=== PATIENT | female | born 1935 | race Caucasian/White ===

== ENCOUNTER → 2016-12-03 | Outpatient (CLI) | payer MEDICARE ==
[~2016-12-03] MED LIST: ACET-2267 PO; AMIO200T2 PO; Aspirin PO; CEFD300C3 PO; CEPH250C PO; CEPH500C PO; CIPR500T78 PO; DIGO125T PO; LEVO25TA2 PO; LORA10TA7 PO; METO-333 PO; METO25TA2 PO; METO25TA6 PO; METO50TA2 PO; NITR-65 PO; ONDA4TAB8 PO; PANT40TA2 PO; Pantoprazole Sodium PO; RIVA20TA PO; TIMO5DRO28 OU; TIMOLOL OU
--- OUTSIDE RECORDS SUMMARY | 2016-12-03 15:03 | XMS REPORT | Continuity of Care Document ---
Author Author [facility] Organization [facility] Address Unknown Phone Unavailable Care Team Providers Care Manager Psychology Name Role Phone NO, LOCAL PHYSICIAN PCP Unavailable Insurance Providers Payer Name Policy Number Subscriber Name Relationship [employer] Medicare [id number] Amber Jeffrey 18 Self / Same As Patient Blue Cross [facility] Supp [id number] Amber Jeffrey 18 Self / Same As Patient Advance Directives Directive Response Recorded Date/Time Advance Directives No 12/12/14 1:30pm Organ Donor Yes 12/12/14 1:30pm Resuscitation Status Full Code 12/12/14 1:30pm Problems No known problems or medical conditions. Medications Medication Dose Route Sig Days/Qty Instructions Order Date Discontinued Date Status Ciprofloxacin HCl 500 Mg PO TWICE A DAY 14 Qty 12/12/14 Active Social History Social History Problem Response Recorded Date/Time Alcohol Use Denies Use 12/12/2014 1:30pm Recreational Drug Use No 12/12/2014 1:30pm Recent Foreign Travel No 12/12/2014 1:30pm Smoking Status Never a Smoker 12/12/2014 1:30pm Query Response Start Date Stop Date Smoking Status Never a Smoker Hospital Discharge Instructions No hospital discharge instructions. Plan of Care No plan of care. Functional Status No functional status results. Allergies, Adverse Reactions, Alerts Allergen Type Severity Reaction Status Last Updated No Known Drug Allergies Active 12/12/14 Immunizations No immunization records. Vital Signs Acute Vital Signs Vital Response Date/Time Temperature (Fahrenheit) 99.2 degrees F (97.6 - 99.5) Temperature (Calculated Celsius) 37.08682 degrees C (36.4 - 37.5) Pulse Rate (adult) 78 bpm (60 - 90) Respiratory Rate 20 bpm (12 - 24) O2 Sat by Pulse Oximetry 93 % (88 - 100) Blood Pressure 143/70 mm Hg Pain Pain Intensity 6 Height (Feet) 5 feet Height (Inches) 0 inches Height (Calculated Centimeters) 152.304413 cm Weight (Pounds) 111 pounds Weight (Calculated Kilograms) 50.756232 kilograms Calculated BMI 21.68 Results Laboratory Results Test Name Result Units Flags Reference Collection Date/Time Result Date/ Time Comments White Blood Count 7.6 10^3/uL 4.3-11.0 12/12/2014 1:34pm 12/12/2014 2: 00pm Red Blood Count 4.28 10^6/uL L 4.35-5.85 12/12/2014 1:34pm 12/12/2014 2: 00pm Hemoglobin 12.6 G/DL 11.5-16.0 12/12/2014 1:34pm 12/12/2014 2:00pm Hematocrit 37 % 35-52 12/12/2014 1:34pm 12/12/2014 2:00pm Mean Corpuscular Volume 87 FL 80-99 12/12/2014 1:pm 12/12/2014 2: 00pm Mean Corpuscular Hemoglobin 29 PG 25-34 12/12/2014 1:34pm 12/12/2014 2: 00pm Mean Corpuscular Hemoglobin Concent 34 G/DL 32-36 12/12/2014 1:pm 11/2014 2:00pm Red Cell Distribution Width 12.5 % 10.0-14.5 12/12/2014 1:pm 2014 2:00pm Platelet Count 172 10^3/uL 130-400 12/12/2014 1:pm 12/12/2014 2:00pm Mean Platelet Volume 11.5 FL H 7.4-10.4 12/12/2014 1:34pm 12/12/2014 2: 00pm Neutrophils (%) (Auto) 73 % 42-75 12/12/2014 1:pm 12/12/2014 2:00pm Lymphocytes (%) (Auto) 16 % 12-44 12/12/2014 1:34pm 12/12/2014 2:00pm Monocytes (%) (Auto) 9 % 0-12 12/12/2014 1:34pm 12/12/2014 2:00pm Eosinophils (%) (Auto) 1 % 0-10 12/12/2014 1:34pm 12/12/2014 2:00pm Basophils (%) (Auto) 1 % 0-10 12/12/2014 1:34pm 12/12/2014 2:00pm Neutrophils # (Auto) 5.6 X 10^3 1.8-7.8 12/12/2014 1:34pm 12/12/2014 2: 00pm Lymphocytes # (Auto) 1.2 X 10^3 1.0-4.0 12/12/2014 1:34pm 12/12/2014 2: 00pm Monocytes # (Auto) 0.7 X 10^3 0.0-1.0 12/12/2014 1:34pm 12/12/2014 2: 00pm Eosinophils # (Auto) 0.1 10^3/uL 0.0-0.3 12/12/2014 1:34pm 12/12/2014 2 :00pm Basophils # (Auto) 0.1 10^3/uL 0.0-0.1 12/12/2014 1:34pm 12/12/2014 2: 00pm Urine Color NAOMI * 12/12/2014 3:14pm 12/12/2014 3:31pm Urine Clarity CLEAR 12/12/2014 3:14pm 12/12/2014 3:31pm Urine pH 6 5-9 12/12/2014 3:14pm 12/12/2014 3:31pm Urine Specific [place] 1.020 1.016-1.022 12/12/2014 3:14pm 2014 3:31pm Urine Protein 2+ * NEGATIVE 12/12/2014 3:14pm 12/12/2014 3:31pm Urine Glucose (UA) NEGATIVE NEGATIVE 12/12/2014 3:14pm 12/12/2014 3: 31pm Urine RBC (Auto) 4+ * NEGATIVE 12/12/2014 3:14pm 12/12/2014 3:31pm Urine Ketones 4+ * NEGATIVE 12/12/2014 3:14pm 12/12/2014 3:31pm Urine Nitrite POSITIVE * NEGATIVE 12/12/2014 3:14pm 12/12/2014 3:31pm Urine Bilirubin NEGATIVE NEGATIVE 12/12/2014 3:14pm 12/12/2014 3: 31pm Urine Urobilinogen NORMAL MG/DL NORMAL 12/12/2014 3:14pm 12/12/2014 3: 31pm Urine Leukocyte Esterase 2+ * NEGATIVE 12/12/2014 3:14pm 12/12/2014 3: 31pm Urine RBC 2-5 /HPF * 12/12/2014 3:14pm 12/12/2014 3:31pm Urine WBC >100 /HPF * 12/12/2014 3:14pm 12/12/2014 3:31pm Urine Bacteria LARGE /HPF * 12/12/2014 3:14pm 12/12/2014 3:31pm Urine Squamous Epithelial Cells 2-5 /HPF 12/12/2014 3:14pm 2014 3:31pm Urine Crystals NONE /LPF 12/12/2014 3:14pm 12/12/2014 3:31pm Urine Casts NONE /LPF 12/12/2014 3:14pm 12/12/2014 3:31pm Urine Mucus NEGATIVE /LPF 12/12/2014 3:14pm 12/12/2014 3:31pm Urine Culture Indicated YES 12/12/2014 3:14pm 12/12/2014 3:31pm Sodium Level 134 MMOL/L L 135-145 12/12/2014 1:34pm 12/12/2014 2:16pm Potassium Level 3.8 MMOL/L 3.6-5.0 12/12/2014 1:34pm 12/12/2014 2:16pm Chloride Level 99 MMOL/L 98-107 12/12/2014 1:34pm 12/12/2014 2:16pm Carbon Dioxide Level 24 MMOL/L 21-32 12/12/2014 1:34pm 12/12/2014 2: 16pm Blood Urea Nitrogen 13 MG/DL 7-18 12/12/2014 1:34pm 12/12/2014 2:16pm Creatinine 0.75 MG/DL 0.60-1.30 12/12/2014 1:34pm 12/12/2014 2:16pm BUN/Creatinine Ratio 17 12/12/2014 1:34pm 12/12/2014 2:16pm Estimat Glomerular Filtration Rate > 60 12/12/2014 1:342014 2:16pm GFR INTERPRETIVE DATA UNITS FOR ESTIMATED GFR (eGFR): mL/min/1.73 M2 REFERENCE RANGE FOR ESTIMATED GFR (eGFR) eGFR NORMAL eGFR >60 MODERATELY DECREASED eGFR 30-59 SEVERLY DECREASED eGFR 15-29 KIDNEY FAILURE <15 (OR DIALYSIS) Glucose Level 118 MG/DL H 70-105 12/12/2014 1:34pm 12/12/2014 2:16pm Calcium Level 9.3 MG/DL 8.5-10.1 12/12/2014 1:3412/12/2014 2:16pm Magnesium Level 1.8 MG/DL 1.8-2.4 12/12/2014 1:3412/12/2014 2:50pm Total Bilirubin 1.0 MG/DL 0.1-1.0 12/12/2014 1:34pm 12/12/2014 2:16pm Alkaline Phosphatase 67 U/L 40-136 12/12/2014 1:12/12/2014 2:16pm Aspartate Amino Transf (AST/SGOT) 17 U/L 5-34 12/12/2014 1:34pm 2014 2:16pm Alanine Aminotransferase (ALT/SGPT) 12 U/L 0-55 12/12/2014 1:12/12 2:16pm Creatine Kinase MB 0.6 NG/ML <6.6 12/12/2014 1:12/12/2014 2:50pm Troponin I < 0.30 NG/ML <0.30 12/12/2014 1:12/12/2014 2:50pm Total Protein 7.0 G/DL 6.4-8.2 12/12/2014 1:12/12/2014 2:16pm Albumin 4.0 G/DL 3.2-4.5 12/12/2014 1:12/12/2014 2:16pm Procedures No known history of procedures. Encounters Encounter Location Date/Time Registered Emergency Room Via [facility] 12/12/14 1:28pm Recent Diagnosis
[2016-12-03 15:42] LABS: ALBUMIN 4.3 G/DL (3.2-4.5); BILIRUBIN,TOTAL 0.4 MG/DL (0.1-1.0); CALCIUM 9.3 MG/DL (8.5-10.1); CREATININE SERUM 0.94 MG/DL (0.60-1.30); POTASSIUM 3.8 MMOL/L (3.6-5.0); TOTAL PROTEIN 7.1 G/DL (6.4-8.2)
[2016-12-03 16:04] LABS: THYROID STIMULATING HORMONE 12.44 UIU/ML (0.35-4.94)
== END ==
LOC: LAB 14:59
PROVIDERS: ATTEND Internal Medicine Cardiovascular Disease
DX: I48.0 Paroxysmal atrial fibrillation (principal); I25.10 Atherosclerotic heart disease of native coronary artery without angina pectoris; R07.89 Other chest pain; R06.02 Shortness of breath; I50.22 Chronic systolic (congestive) heart failure
CPT/HCPCS: 36415; 80053; 84443

== ENCOUNTER 2016-12-04 21:38 | Observation (INO) | payer MEDICARE ==
[~2016-12-04] VITALS: Ht 152.4 cm; Wt 52.6 kg
[~2016-12-04 21:38] MED LIST changes: -AMIO200T2 PO; -LEVO25TA2 PO; -METO50TA2 PO
--- OUTSIDE RECORDS SUMMARY | 2016-12-04 21:44 | XMS REPORT | Continuity of Care Document ---
Author Author [facility] Organization [facility] Address Unknown Phone Unavailable Care Team Providers Care Can Dragger Name Role Phone NO, LOCAL PHYSICIAN PCP Unavailable Insurance Providers Payer Name Policy Number Subscriber Name Relationship [employer] Medicare [id number] Amber Jeffrey 18 Self / Same As Patient Blue Cross [facility] Supp [id number] Amber Jeffrey 17 Self / Same As [...] F (97.6 - 99.5) Temperature (Calculated Celsius) 37.29264 degrees C (36.4 - 37.5) Pulse Rate (adult) 78 bpm (60 - 90) Respiratory Rate 20 bpm (12 - 24) O2 Sat by Pulse Oximetry 93 % (88 - 100) Blood Pressure 143/70 mm Hg Pain Pain Intensity 6 Height (Feet) 5 feet Height (Inches) 0 inches Height (Calculated Centimeters) 152.024936 cm Weight (Pounds) 111 pounds Weight (Calculated Kilograms) 50.935549 kilograms Calculated BMI 21.68 Results Laboratory Results [...] 5-9 12/12/2014 3:14pm 12/12/2014 3:31pm Urine Specific [place] 1.020 1.016-1.022 12/12/2014 3:14pm 2014 3:31pm Urine [...] Encounter Location Date/Time Registered Emergency Room [facility] 12/12/14 1:28pm Recent Diagnosis
[2016-12-04 21:59] LABS: BASOPHILS % (AUTO) 0 % (0-10); EOSINOPHILS # (AUTO) 0.3 10^3/uL (0.0-0.3); EOSINOPHILS % (AUTO) 4 % (0-10); LYMPHOCYTES # (AUTO) 0.9 X 10^3 (1.0-4.0); LYMPHOCYTES % (AUTO) 13 % (12-44); MEAN CORPUSCULAR HEMOGLOBIN 29 PG (25-34); MEAN CORPUSCULAR HGB CONC 33 G/DL (32-36); MEAN CORPUSCULAR VOLUME 90 FL (80-99); MEAN PLATELET VOLUME 11.1 FL (7.4-10.4); MONOCYTES # (AUTO) 0.7 X 10^3 (0.0-1.0); MONOCYTES % (AUTO) 9 % (0-12); NEUTROPHILS # (AUTO) 5.2 X 10^3 (1.8-7.8); NEUTROPHILS % (AUTO) 74 % (42-75); PLATELET COUNT 217 10^3/uL (130-400); RED BLOOD COUNT 3.71 10^6/uL (4.35-5.85); RED CELL DISTRIBUTION WIDTH 13.8 % (10.0-14.5); WHITE BLOOD COUNT 7.1 10^3/uL (4.3-11.0)
[2016-12-04] MEDS ORDERED: RX-NITROGLYCERIN 0.4 MG TAB BTL 25'S SL ONE (22:00)
[2016-12-04] MEDS ORDERED: ASPIRIN 81 MG CHEW (CHILDREN'S ASA) PO ONE (22:00)
[2016-12-04] MEDS ORDERED: AMIO200T2 PO (22:06)
[2016-12-04 22:08] LABS: INR 1.3 (0.8-1.4); PROTHROMBIN TIME PATIENT 16.2 SEC (12.2-14.7)
--- NOTE | 2016-12-04 22:11 | ED Chest Pain ---
General Chief Complaint: Chest Pain Stated Complaint: CP Nursing Triage Note: pt reports L medial CP starting early this afternoon. Pt reports it radiates to her back. Pt reports SOA with ambulation/activity. Pt denies nausea at this time. Nursing Sepsis Screen: No Definite Risk Source: patient, family Exam Limitations: no limitations History of Present Illness Time seen by provider: 21:38 Initial Comments Here with report of chest pain that is to the low chest that feels like a pressure. Onset at 5 p.m. Radiates to the left side of the chest. Does report shortness of air. Has history of pacemaker. Left pleural effusion. Does report nausea but denies vomiting. Denies diarrhea or dysuria. Does report shortness of breath with activity. Timing/Duration: 4-6 hours Severity/Quality: moderate Location: central Radiation: back Activities at Onset: none Prior CP/Workup: cardiac cath, echocardiography Modifying Factors: worse with coughing, improves with movement ASA po BURNER HAND: No NTG SL BURNER HAND: No Associated Symptoms: back painNo fever/chills, nausea/vomiting shortness of breathNo weakness Allergies and Home Medications Allergies Coded Allergies: No Known Drug Allergies (Unverified , 12/12/14) Home Medications Amiodarone HCl 200 Mg Tablet 200 MG PO DAILY (Reported) Loratadine 10 Mg Tablet 10 MG PO DAILY PRN PRN ALLERGIES (Reported) Metoprolol Tartrate 25 Mg Tablet 50 MG PO BID (Reported) Rivaroxaban 20 Mg Tablet 20 MG PO HS (Reported) Timolol 5 Ml Drops 1 DROP OU BID (Reported) 0.5% Review of Systems Constitutional: see HPINo chills, No fever EENTM: No Symptoms Reported Respiratory: See HPI Shortness of AirDenies Wheezing Cardiovascular: See HPI Chest PainDenies Edema Gastrointestinal: Denies Abdominal Pain, NauseaDenies Vomiting Genitourinary: No Symptoms Reported Musculoskeletal: see HPI back painNo neck pain Skin: no symptoms reported Psychiatric/Neurological: No Symptoms Reported All Other Systems Reviewed Negative Unless Noted: Yes Past Teejikm-Kyodue-Lsouyp Hx Patient Social History Alcohol Use: Denies Use Recreational Drug Use: No Smoking Status: Never a Smoker Recent Foreign Travel: No Contact w/Someone Who Travel: No Recent Infectious Disease Expo: No Recent Hopitalizations: No Physical Abuse Screen: No Sexual Abuse: No Immunizations Up To Date Tetanus Booster (TDap): Unknown Seasonal Allergies Seasonal Allergies: No Surgeries HX Surgeries: Yes (RT MASTECTOMY) Surgeries: Appendectomy, Breast, Gallbladder, Hysterectomy, Oophorectomy, Pacemaker Respiratory Hx Respiratory Disorders: No Cardiovascular Hx Cardiac Disorders: Yes (PACEMAKER, HEART FAILURE) Cardiac Disorders: Atrial Fibrillation, Coronary Artery Disease, Heart Murmur Neurological Hx Neurological Disorders: No Reproductive System Hx Reproductive Disorders: 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 Genitourinary Hx Genitourinary Disorders: No Genitourinary Disorders: UTI-Chronic Gastrointestinal Hx Gastrointestinal Disorders: Yes (bowel impaction in december) Musculoskeletal Hx 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) Musculoskeletal Disorders: Arthritis Endocrine Hx Endocrine Disorders: No HEENT HX ENT Disorders: Yes HEENT Disorders: Glaucoma Hearing Impairment: Denies Cancer Hx Cancer: Yes (R MASTECTOMY) Cancer: Breast Psychosocial Hx Psychiatric Problems: No Integumentary HX Skin/Integumentary Disorder: No Blood Transfusions Hx Blood Disorders: No Adverse Reaction to a Blood Tr: No Reviewed Nursing Assessment Reviewed/Agree w Nursing PMH: Yes Family Medical History Significant Family History: Heart Disease, Cancer Family Medial History: Colon cancer G8 BROTHER Completed stroke 19 MOTHER ("Mother had several strokes") FH: leukemia 19 FATHER FHx: heart disease 19 FATHER 19 MOTHER G8 BROTHER Physical Exam Vital Signs Vital Sign - Last 12Hours 12/04/16 21:53 Temp 96.5 Pulse 59 Resp 20 B/P 145/75 Pulse Ox 97 O2 Delivery Room Air Capillary Refill : Less Than 3 Seconds General Appearance: No Apparent Distress WD/WN HEENT: PERRL/EOMI Pharynx Normal Neck: Non Tender Supple Respiratory: Normal Breath Sounds No Accessory Muscle Use No Respiratory Distress Cardiovascular: Regular Rate, Rhythm No Murmur Gastrointestinal: Non Tender Soft Extremity: Non Tender No Calf Tenderness Neurologic/Psychiatric: Alert Oriented x3 Skin: Normal Color Warm/Dry Progress/Results/Core Measures Results/Orders Lab Results Laboratory Tests Test 12/04/16 21:45 Range/Units Activated Partial Thromboplast Time 23 L 24-35 SEC Alanine Aminotransferase (ALT/SGPT) 14 0-55 U/L Albumin 3.9 3.2-4.5 G/DL Alkaline Phosphatase 70 40-136 U/L Amylase Level 46 25-125 U/L Anion Gap 7 5-14 MMOL/L Aspartate Amino Transf (AST/SGOT) 18 5-34 U/L B-Type Natriuretic Peptide 228.8 H <100.0 PG/ML BUN/Creatinine Ratio 16 Basophils # (Auto) 0.0 0.0-0.1 10^3/uL Basophils (%) (Auto) 0 0-10 % Blood Urea Nitrogen 16 7-18 MG/DL Calcium Level 9.1 8.5-10.1 MG/DL Carbon Dioxide Level 27 21-32 MMOL/L Chloride Level 102 98-107 MMOL/L Creatinine 0.97 0.60-1.30 MG/DL Eosinophils # (Auto) 0.3 0.0-0.3 10^3/uL Eosinophils (%) (Auto) 4 0-10 % Estimat Glomerular Filtration Rate 55 Glucose Level 137 H 70-105 MG/DL Hematocrit 34 L 35-52 % Hemoglobin 10.9 L 11.5-16.0 G/DL INR Comment 1.3 0.8-1.4 Lipase 24 8-78 U/L Lymphocytes # (Auto) 0.9 L 1.0-4.0 X 10^3 Lymphocytes (%) (Auto) 13 12-44 % Magnesium Level 2.2 1.8-2.4 MG/DL Mean Corpuscular Hemoglobin 29 25-34 PG Mean Corpuscular Hemoglobin Concent 33 32-36 G/DL Mean Corpuscular Volume 90 80-99 FL Mean Platelet Volume 11.1 H 7.4-10.4 FL Monocytes # (Auto) 0.7 0.0-1.0 X 10^3 Monocytes (%) (Auto) 9 0-12 % Myoglobin 28.6 10.0-92.0 NG/ML Neutrophils # (Auto) 5.2 1.8-7.8 X 10^3 Neutrophils (%) (Auto) 74 42-75 % Platelet Count 217 130-400 10^3/uL Potassium Level 4.0 3.6-5.0 MMOL/L Prothrombin Time 16.2 H 12.2-14.7 SEC Red Blood Count 3.71 L 4.35-5.85 10^6/uL Red Cell Distribution Width 13.8 10.0-14.5 % Sodium Level 136 135-145 MMOL/L Total Bilirubin 0.4 0.1-1.0 MG/DL Total Protein 6.3 L 6.4-8.2 G/DL Troponin I < 0.30 <0.30 NG/ML White Blood Count 7.1 4.3-11.0 10^3/uL My Orders Orders-LINDA TINOCO MD Cbc With Automated Diff (12/04/16 21:51) Magnesium (12/04/16 21:51) Chest 1 View, Ap/Pa Only (12/04/16 21:51) Ekg Tracing (12/04/16 21:51) Cardiac Profile 1 (12/04/16 21:51) Comprehensive Metabolic Panel (12/04/16 21:51) Myoglobin Serum (12/04/16 21:51) Protime With Inr (12/04/16 21:51) Partial Thromboplastin Time (12/04/16 21:51) O2 (12/04/16 21:51) Monitor-Rhythm Ecg Trace Only (12/04/16 21:51) Lipid Panel (12/05/16 06:00) Aspirin Chewable Tablet (Baby Aspirin Ch (12/04/16 22:00) Rx-Nitroglycerin Sl Tabs (Rx-Nitrostat S (12/04/16 22:00) Saline Lock/Iv-Start (12/04/16 21:51) Lipase (12/04/16 21:51) Amylase (12/04/16 21:51) BNP (12/04/16 21:51) Ua Culture If Indicated (12/04/16 21:51) Acetaminophen Tablet (Tylenol Tablet) (12/04/16 22:22) Lidocaine 2% Viscous 15 Ml (Xylocaine Vi (12/04/16 22:30) Antacid Suspension (Mylanta Suspension (12/04/16 22:30) Ondansetron Injection (Zofran Injectio (12/04/16 22:45) Ondansetron Injection (Zofran Injectio (12/04/16 22:33) Medications Given in ED Current Medications Medications Dose Ordered Sig/Rebeka Route Start Time Stop Time Status Last Admin Dose Admin Al Hydrox/Mg Hydrox/Simethicone 30 ml ONCE ONCE PO 12/04/16 22:30 12/04/16 22:31 DC 12/04/16 22:32 30 ML Aspirin 324 mg ONCE ONCE PO 12/04/16 22:00 12/04/16 22:01 DC 12/04/16 22:10 324 MG Lidocaine HCl 15 ml ONCE ONCE PO 12/04/16 22:30 12/04/16 22:31 DC 12/04/16 22:32 15 ML Nitroglycerin 0.4 mg UD ONCE SL 12/04/16 22:00 12/04/16 22:01 DC 12/04/16 22:10 0.4 MG Ondansetron HCl 4 mg ONCE ONCE IVP 12/04/16 22:45 12/04/16 22:46 DC 12/04/16 22:40 4 MG Vital Signs/I&O Vital Sign - Last 12Hours 12/04/16 12/04/16 12/04/16 21:53 22:02 22:02 Temp 96.5 Pulse 59 Resp 20 B/P 145/75 Pulse Ox 97 97 O2 Delivery Room Air Room Air Room Air Blood Pressure Mean: 98 Progress Note : Progress Note Seen and evaluated. IV, labs, EKG and chest x-ray ordered. UA ordered as this has been complicating factor in the past. Nitroglycerin sublingual 1 and ASA 324 mg by mouth given. Nitroglycerin did cause headache but did decrease chest pain. GI cocktail and Tylenol 1 g by mouth given. Monitor patient. Patient did vomit a little bit after the GI cocktail. 2330: Pain decreased to just a mild ache but still present. I did discuss the case with Dr. FINLEY. He accepts patient for admission, observation status. Consult Dr. Sveta rosas at [phone]. He will see patient as well. ECG Initial ECG Impression Date: Dec 04, 2016 Initial ECG Impression Time: 21:42 Initial ECG Rate: 82 Initial ECG Comparisson: Unchanged Comment Atrial paced rhythm with normal axis. No evidence of ST elevation MT. Interpreted by me. Unchanged from previous Diagnostic Imaging Diagonstic Imaging: Xray Plain Films/CT/US/NM/MRI: chest Comments Small left pleural effusion unchanged from previous. No obvious infiltrate. Reviewed: Reviewed by Me Departure Communication Time/Spoke to Admitting Phy: 23:30 Time/Spoke to Consulting Physi: 23:35 Impression Impression: Primary Impression: Chest pain Qualified Code: R07.2 - Precordial pain Disposition: ADMITTED INPATIENT Condition: Stable Decision to Admit Reason: Admit from ER (General) Decision to Admit/Date: Dec 04, 2016 Time/Decision to Admit Time: 23:30 Departure-Patient Inst. Referrals: SCHOELING,BENITEZ D MD (PCP/Family) Primary Care Physician LINDA TINOCO MD Dec 04, 2016 22:11
[2016-12-04 22:19] LABS: ALANINE AMINOTRANSFERASE 14 U/L (0-55); ALBUMIN 3.9 G/DL (3.2-4.5); AMYLASE 46 U/L (25-125); ANION GAP 7 MMOL/L (5-14); ASPARTATE AMINO TRANSFERASE 18 U/L (5-34); BILIRUBIN,TOTAL 0.4 MG/DL (0.1-1.0); BLOOD UREA NITROGEN 16 MG/DL (7-18); BUN/CREATININE RATIO 16; CALCIUM 9.1 MG/DL (8.5-10.1); CARBON DIOXIDE 27 MMOL/L (21-32); CHLORIDE 102 MMOL/L (98-107); CREATININE SERUM 0.97 MG/DL (0.60-1.30); GFR ESTIMATED 55; GLUCOSE 137 MG/DL (70-105); LIPASE 24 U/L (8-78); MAGNESIUM 2.2 MG/DL (1.8-2.4); SODIUM 136 MMOL/L (135-145); TOTAL PROTEIN 6.3 G/DL (6.4-8.2)
[2016-12-04] MEDS ORDERED: ACETAMINOPHEN 500 MG TAB (TYLENOL) PO STA (22:22)
[2016-12-04 22:26] LABS: MYOGLOBIN SERUM 28.6 NG/ML (10.0-92.0)
[2016-12-04] MEDS ORDERED: ANTACID SUSP 30 ML UDC (MYLANTA) PO ONE (22:30)
[2016-12-04] MEDS ORDERED: LIDOCAINE 2% VISCOUS 15 ML UDC PO ONE (22:30)
[2016-12-04] MEDS ORDERED: ONDANSETRON 4 MG/2 ML (SDV) Z0FRAN ONE (22:33)
[2016-12-04] MEDS ORDERED: ONDANSETRON 4 MG/2 ML (SDV) Z0FRAN IVP ONE (22:45)
[2016-12-05] VITALS (9 sets, daily range): BP systolic 112–147; BP diastolic 55–83
[2016-12-05] MEDS ORDERED: NS IV 1000 ML 1,000 ML ONE (00:38)
[2016-12-05] MEDS ORDERED: ONDANSETRON 4 MG/2 ML (SDV) Z0FRAN IV PRN (01:45)
[2016-12-05] MEDS ORDERED: NS IV 1000 ML 1,000 ML IV SCH (01:45)
[2016-12-05] MEDS ORDERED: CATHETER FLUSH 10 ML SYR IV PRN (01:45)
[2016-12-05] MEDS ORDERED: morphine INJ 4 MG/ML 1 ML (VIAL/SYRINGE) IV PRN (01:45)
[2016-12-05] MEDS ORDERED: NITROGLYCERIN SUBLINGUAL 0.4 MG TAB (NITROSTAT) SL PRN (01:45)
[2016-12-05 03:50] LABS: BASOPHILS % (AUTO) 1 % (0-10); EOSINOPHILS # (AUTO) 0.3 10^3/uL (0.0-0.3); EOSINOPHILS % (AUTO) 4 % (0-10); LYMPHOCYTES # (AUTO) 0.9 X 10^3 (1.0-4.0); LYMPHOCYTES % (AUTO) 14 % (12-44); MEAN CORPUSCULAR HEMOGLOBIN 29 PG (25-34); MEAN CORPUSCULAR HGB CONC 33 G/DL (32-36); MEAN CORPUSCULAR VOLUME 90 FL (80-99); MEAN PLATELET VOLUME 11.3 FL (7.4-10.4); MONOCYTES # (AUTO) 0.7 X 10^3 (0.0-1.0); MONOCYTES % (AUTO) 11 % (0-12); NEUTROPHILS # (AUTO) 4.5 X 10^3 (1.8-7.8); NEUTROPHILS % (AUTO) 70 % (42-75); PLATELET COUNT 206 10^3/uL (130-400); RED BLOOD COUNT 3.45 10^6/uL (4.35-5.85); RED CELL DISTRIBUTION WIDTH 13.8 % (10.0-14.5); WHITE BLOOD COUNT 6.5 10^3/uL (4.3-11.0)
[2016-12-05 04:11] LABS: ALANINE AMINOTRANSFERASE 13 U/L (0-55); ALBUMIN 3.6 G/DL (3.2-4.5); ANION GAP 8 MMOL/L (5-14); ASPARTATE AMINO TRANSFERASE 14 U/L (5-34); BILIRUBIN,TOTAL 0.5 MG/DL (0.1-1.0); BLOOD UREA NITROGEN 14 MG/DL (7-18); BUN/CREATININE RATIO 16; CALCIUM 8.7 MG/DL (8.5-10.1); CARBON DIOXIDE 27 MMOL/L (21-32); CHLORIDE 103 MMOL/L (98-107); CHOLESTEROL 215 MG/DL (< 200); CREATININE SERUM 0.88 MG/DL (0.60-1.30); DIRECT LDL 152 MG/DL (1-129); GFR ESTIMATED > 60; GLUCOSE 97 MG/DL (70-105); POTASSIUM 4.1 MMOL/L (3.6-5.0); SODIUM 138 MMOL/L (135-145); TOTAL PROTEIN 5.6 G/DL (6.4-8.2); TRIGLYCERIDES 77 MG/DL (<150); VLDL CHOLESTEROL 15 MG/DL (5-40)
[2016-12-05 04:18] LABS: MYOGLOBIN SERUM 31.7 NG/ML (10.0-92.0)
[2016-12-05] MEDS ORDERED: RT-ALBUTEROL SULF 2.5 MG/3 ML PRE-MIX VIAL INH PRN (04:30)
[2016-12-05] MEDS: CATHETER FLUSH 10 ML SYR IV SCH ×2 (07:00→14:00)
--- NOTE | 2016-12-05 07:27 | Consultation-Cardiology ---
HPI-Cardiology Cardiology Consultation Date of Consultation 12/05/16 Date of Admission Indication: chest pain HPI 81-year-old lady with history of sick sinus syndrome, permanent pacemaker, hypertension hyperlipidemia. Patient was in her usual state of health until sudden onset of chest pain described it as dull in nature in the retrosternal area radiating to the left shoulder. Associated with shortness of breath. Expressed that it improved after receiving nitroglycerin in the emergency room. Currently feeling better. Denied any further episodes of chest pain or palpitation, denied any syncope, patient had a cardiac catheterization done 2 years ago which showed moderate coronary artery disease Home Medications & Allergies Allergies: Coded Allergies: No Known Drug Allergies (Unverified , 12/12/14) Home Medication List Reviewed: Yes HKN-Eknghg-Qyzhkh Hx Patient Social History Marital Status: Alcohol Use: Denies Use Recreational Drug Use: No Smoking Status: Never a Smoker Recent Foreign Travel: No Recent Infectious Disease Expo: No Recent Hopitalizations: Yes Physical Abuse Screen: No Sexual Abuse: No Immunizations Up To Date Tetanus Booster (TDap): Unknown Date of Pneumonia Vaccine: Aug 05, 2016 Family Medical History Significant Family History: Heart Disease, Cancer Family History: 19 FATHER FH: leukemia FHx: heart disease 19 MOTHER FHx: heart disease Completed stroke ("Mother had several strokes") G8 BROTHER Colon cancer FHx: heart disease Constitutional: no symptoms reported see HPI weakness EENTM: no symptoms reported see HPI Respiratory: see HPINo cough, dyspnea on exertionNo hemoptysis, No orthopnea , No phlegm, short of breathNo stridor, No wheezing, No other Cardiovascular: see HPI chest painNo edema, No Hx of Intervention, No palpitations, No syncope, No vascular heart diseas, No other Gastrointestinal: see HPI Genitourinary: no symptoms reported see HPI Musculoskeletal: no symptoms reported see HPI Skin: no symptoms reported see HPI Psychiatric/Neurological: No Symptoms Reported See HPI Reviewed Test Results Reviewed Test Results Lab Laboratory Tests Test 12/04/16 21:45 12/05/16 03:45 Range/Units Activated Partial Thromboplast Time 23 L 24-35 SEC Alanine Aminotransferase (ALT/SGPT) 14 13 0-55 U/L Albumin 3.9 3.6 3.2-4.5 G/DL Alkaline Phosphatase 70 60 40-136 U/L Amylase Level 46 25-125 U/L Anion Gap 7 8 5-14 MMOL/L Aspartate Amino Transf (AST/SGOT) 18 14 5-34 U/L B-Type Natriuretic Peptide 228.8 H <100.0 PG/ML BUN/Creatinine Ratio 16 16 Basophils # (Auto) 0.0 0.0 0.0-0.1 10^3/uL Basophils (%) (Auto) 0 1 0-10 % Blood Urea Nitrogen 16 14 7-18 MG/DL Calcium Level 9.1 8.7 8.5-10.1 MG/DL Carbon Dioxide Level 27 27 21-32 MMOL/L Chloride Level 102 103 98-107 MMOL/L Creatinine 0.97 0.88 0.60-1.30 MG/DL Eosinophils # (Auto) 0.3 0.3 0.0-0.3 10^3/uL Eosinophils (%) (Auto) 4 4 0-10 % Estimat Glomerular Filtration Rate 55 > 60 Glucose Level 137 H 97 70-105 MG/DL Hematocrit 34 L 31 L 35-52 % Hemoglobin 10.9 L 10.1 L 11.5-16.0 G/DL INR Comment 1.3 0.8-1.4 Lipase 24 8-78 U/L Lymphocytes # (Auto) 0.9 L 0.9 L 1.0-4.0 X 10^3 Lymphocytes (%) (Auto) 13 14 12-44 % Magnesium Level 2.2 1.8-2.4 MG/DL Mean Corpuscular Hemoglobin 29 29 25-34 PG Mean Corpuscular Hemoglobin Concent 33 33 32-36 G/DL Mean Corpuscular Volume 90 90 80-99 FL Mean Platelet Volume 11.1 H 11.3 H 7.4-10.4 FL Monocytes # (Auto) 0.7 0.7 0.0-1.0 X 10^3 Monocytes (%) (Auto) 9 11 0-12 % Myoglobin 28.6 31.7 10.0-92.0 NG/ML Neutrophils # (Auto) 5.2 4.5 1.8-7.8 X 10^3 Neutrophils (%) (Auto) 74 70 42-75 % Platelet Count 217 206 130-400 10^3/uL Potassium Level 4.0 4.1 3.6-5.0 MMOL/L Prothrombin Time 16.2 H 12.2-14.7 SEC Red Blood Count 3.71 L 3.45 L 4.35-5.85 10^6/uL Red Cell Distribution Width 13.8 13.8 10.0-14.5 % Sodium Level 136 138 135-145 MMOL/L Total Bilirubin 0.4 0.5 0.1-1.0 MG/DL Total Protein 6.3 L 5.6 L 6.4-8.2 G/DL Troponin I < 0.30 < 0.30 <0.30 NG/ML White Blood Count 7.1 6.5 4.3-11.0 10^3/uL Cholesterol Level 215 H < 200 MG/DL HDL Cholesterol 52 40-60 MG/DL LDL Cholesterol Direct 152 H 1-129 MG/DL Triglycerides Level 77 <150 MG/DL VLDL Cholesterol 15 5-40 MG/DL Physical Exam Vital Signs Vital Sign - Last 12Hours 12/04/16 21:53 Temp 96.5 Pulse 59 Resp 20 B/P 145/75 Pulse Ox 97 O2 Delivery Room Air Capillary Refill : Less Than 3 Seconds General Appearance: No Apparent Distress WD/WN Eyes: Bilateral Eye EOMI, Bilateral Eye Normal Inspection, Bilateral Eye PERRL HEENT: PERRL/EOMI TMs Normal Normal ENT Inspection Pharynx Normal Neck: Full Range of Motion Normal Inspection Non Tender Supple Carotid Bruit Respiratory: Chest Non Tender Lungs Clear Normal Breath Sounds No Accessory Muscle Use No Respiratory Distress Cardiovascular: Regular Rate, Rhythm No Edema No Gallop No JVD No Murmur Normal Peripheral Pulses Gastrointestinal: Normal Bowel Sounds No Organomegaly No Pulsatile Mass Non Tender Soft Back: Normal Inspection No CVA Tenderness No Vertebral Tenderness Extremity: Normal Capillary Refill Normal Inspection Normal Range of Motion Non Tender No Calf Tenderness No Pedal Edema Neurologic/Psychiatric: Alert Oriented x3 No Motor/Sensory Deficits Normal Mood/Affect Skin: Normal Color Warm/Dry Lymphatic: No Adenopathy A/P-Cardiology Admission Diagnosis Chest pain nonspecific etiology Coronary artery disease Paroxysmal atrial fibrillation Ventricular tachycardia Assessment/Plan Chest pain nonspecific etiology, atypical in presentation, responsive to nitroglycerin, had extensive workup in the past. No recent workup, last cardiac catheterization was done in December 2014. I will evaluate Lexiscan stress test. EKG did not show any acute abnormality. History of Left pleural effusion status post permanent pacemaker implantation- resolved, continue to monitor. Last echocardiogram was done in March 2016 which showed no significant pericardial effusion. Mild nonobstructive coronary artery disease-cardiac catheterization on December 29, 2014 revealed mild to moderate coronary artery disease, nonobstructive disease with 40 percent mid LAD, 40-50 percent proximal RCA with mild disease distally. Continue to monitor. Paroxysmal atrial fibrillation, sick sinus syndrome, history of dual-chamber pacemaker implantation, ZACKERY DONOVAN implantation, appeared to have multiple episodes of paroxysmal atrial fibrillation with rapid ventricular response, Maintained on amiodarone, on the last visit to my office on December 03, I doubled her metoprolol to 50 mg twice daily. Continue to monitor blood pressure. Planning for stress test today. Multiple episodes of ventricular tachycardia, nonsustained, maintained on amiodarone and metoprolol, continue to monitor Hypertension, monitor blood pressure. [id number] score is 4, yearly risk of stroke without oral anticoagulation is 4 percent. Currently on Xarelto 20 g daily and tolerating it well. Mild bilateral carotid stenosis, ultrasound was done in August 2016, continue to monitor Back pain, chronic, continue to monitor History of breast cancer, right mastectomy done in 1999, Hysterectomy 1968, appendectomy 1957. Clinical Quality Measures AMI/AHF: ASA po Prior to arrival: No DVT/VTE Risk/Contraindication: Risk Factor Score Per Nursin RFS Level Per Nursing on Admit: 4+=Very High BRANDIE HAMMER MD Dec 05, 2016 07:27
[2016-12-05] MEDS ORDERED: REGADENOSON 0.4 MG/5 ML SYR (LEXISCAN) IV ONE ×2 (08:54→09:45)
--- NOTE | 2016-12-05 08:58 | Diagnostic Imaging Report ---
Indication: Chest pain. Comparison with 06/25/2016. Findings: There has been slight increasing cardiac size. Lungs well-aerated. There are no consolidated infiltrates. No evidence of pulmonary edema. Mild blunting left costophrenic angle is again noted and unchanged. Pacemaker remains in good position unchanged. No evidence of pneumothorax. Surgical clips noted over the right chest consistent with mastectomy. No bony abnormality. IMPRESSION: 1. Slight increasing cardiac size when compared with previous exam though no definite changes of congestive failure. 2. Blunting left costal phrenic angle again noted unchanged. This may represent scarring or small pleural effusion. Dictated by: Dictated on workstation # [id number]
[2016-12-05] MEDS ORDERED: AMIODARONE 200 MG (CORDARONE) TAB PO SCH (09:00)
[2016-12-05] MEDS ORDERED: ASPIRIN E.C. 325 MG (ECOTRIN) TABLET PO SCH (09:00)
--- NOTE | 2016-12-05 10:49 | Short Stay Summary-Hospitalist ---
HPI History of Present Illness: HPI/Chief Complaint CC: chest pain HPI: Ms. Mcdaniel is a 81yoF with a PMH of PAF with permanent pacemaker, HTN, HLD , and CAD who came to the hospital with sudden onset chest pain that was dull, retrosternal, and radiated to the left shoulder. She was short of breath along with this chest pain. While in the ED she received nitroglycerin which improved her chest pain. She has been feeling better since being in the ED and has not had a repeat of this chest pain. She denies palpitations, syncope, and diaphoresis. She had a previous cardiac cath around 2 years ago with moderate CAD with no interventions at that time. This morning she had a stress test done, and we are awaiting the results of that. Nursing interview: The patient has denied chest pain since yesterday. She went for her stress around 0800 today. She lives at home alone. Her PCP is Dr. Odonnell. Chart review: BNP 228, potassium 4.1, creatinine 0.88, negative troponin and myoglobin, previous ECHO with EF of 60%, pulmonary artery pressure 50mmHg Patient was seen and examined and family is at the bedside. She denies any chest pain currently and I tell her that as long as the heart test is negative per Dr. Bangura standpoint will be able to pursue the reason for chest pain with Dr. Odonnell in a follow-up and outpatient clinic appt Source: patient, RN/MD Exam Limitations: no limitations Date Seen 12/05/16 Attending Physician Ronak Monge MD PCP Anders Odonnell MD Referring Physician Date of Admission Dec 04, 2016 at 23:30 Home Medications & Allergies Home Medications Reviewed patient Home Medication Reconciliation Form Allergies Coded Allergies: No Known Drug Allergies (Unverified , 12/12/14) Past Wpyhrrw-Ixxdhb-Itzjuy Hx Patient Social History Marrital Status: Alcohol Use: Denies Use Recreational Drug Use: No Smoking Status: Never a Smoker Physical Abuse Screen: No Sexual Abuse: No Recent Foreign Travel: No Contact w/other who traveled: No Recent Hopitalizations: Yes Recent Infectious Disease Expo: No Immunizations Up To Date Tetanus Booster (TDap): Unknown Date of Pneumonia Vaccine: Aug 05, 2016 Seasonal Allergies Seasonal Allergies: No Surgeries HX Surgeries: Yes (RT MASTECTOMY) Surgeries: Appendectomy, Breast, Gallbladder, Hysterectomy, Oophorectomy, Pacemaker Respiratory Hx Respiratory Disorders: No Cardiovascular Hx Cardiovascular Disorders: Yes (PACEMAKER, HEART FAILURE) Cardiac Disorders: Atrial Fibrillation, Coronary Artery Disease, Heart Murmur Neurological Hx Neurological Disorders: No Reproductive System Hx Reproductive Disorders: No Genitourinary Hx Genitourinary Disorders: No Genitourinary Disorders: UTI-Chronic Gastrointestinal Hx Gastrointestinal Disorders: Yes (bowel impaction in december) Musculoskeletal Hx 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) Musculoskeletal Disorders: Arthritis Endocrine Hx Endocrine Disorders: No HEENT HX ENT Disorders: Yes HEENT Disorders: Glaucoma Hearing Impairment: Denies Cancer Hx Cancer: Yes (R MASTECTOMY) Cancer: Breast Psychosocial Hx Psychiatric Problems: No Integumentary HX Skin/Integumentary Disorder: No Blood Transfusions Hx Blood Disorders: No Adverse Reaction to a Blood Tr: No Reviewed Nursing Assessment Reviewed/Agree w Nursing PMH: Yes Family Medical History Significant Family History: Heart Disease, Cancer Family Hx: Colon cancer G8 BROTHER Completed stroke 19 MOTHER ("Mother had several strokes") FH: leukemia 19 FATHER FHx: heart disease 19 FATHER 19 MOTHER G8 BROTHER Review of Systems Constitutional: No chills, No diaphoresis, No dizziness EENTM: no symptoms reported Respiratory: short of breath (resolved) Cardiovascular: chest pain (resolved)No edema, No palpitations, No syncope Gastrointestinal: no symptoms reported Genitourinary: no symptoms reported Musculoskeletal: no symptoms reported Skin: no symptoms reported Psychiatric/Neurological: No Symptoms Reported Physical Exam Physical Exam Vital Signs Vital Sign - Last 12Hours 12/04/16 21:53 Temp 96.5 Pulse 59 Resp 20 B/P 145/75 Pulse Ox 97 O2 Delivery Room Air Capillary Refill : Less Than 3 Seconds General Appearance: No Apparent Distress WD/WN Chronically ill Thin HEENT: PERRL/EOMI TMs Normal Normal ENT Inspection Pharynx Normal Neck: Full Range of Motion Normal Inspection Non Tender Supple Respiratory: Chest Non Tender Lungs Clear Normal Breath Sounds No Accessory Muscle Use No Respiratory Distress Cardiovascular: Regular Rate, Rhythm No Edema No Gallop No JVD No Murmur Normal Peripheral Pulses Gastrointestinal: Normal Bowel Sounds No Organomegaly No Pulsatile Mass Non Tender Soft Rectal: Deferred Back: Normal Inspection Extremity: Normal Capillary Refill Normal Inspection Normal Range of Motion Non Tender No Calf Tenderness Neurologic/Psychiatric: Alert Oriented x3 No Motor/Sensory Deficits Skin: Normal Color Warm/Dry Lymphatic: No Adenopathy Results Results/Procedures Lab Laboratory Tests 12/04/16 21:45 12/05/16 03:45 Radiology chests xray: 1. Slight increasing cardiac size when compared with previous exam though no definite changes of congestive failure. 2. Blunting left costal phrenic angle again noted unchanged. This may represent scarring or small pleural effusion. Short Stay Diagnosis Discharge Diagnosis-Short Stay Admission Diagnosis 1. atypical chest pain with concerning history for progression of CAD 2. CAD 3. HTN 4. HLD 5. PAF 6. permanent pacemaker in place 7. elevated BNP 8. normocytic anemia 9. History of left pleural effusion Final Discharge Diagnosis 1. atypical chest pain with concerning history for progression of CAD 2. CAD 3. HTN 4. HLD 5. PAF 6. permanent pacemaker in place 7. elevated BNP 8. normocytic anemia 9. History of left pleural effusion Conclusion Plan -cards consult -stress test today -continue amiodarone and metoprolol for PAF -[id number] score is 4, yearly risk of stroke without oral anticoagulation is 4 percent. Currently on Xarelto 20 g daily and tolerating it well. -monitor vitals -monitor labs Pt agrees to the plan for DC as long as Cardiology approves Copy Copies To 1: ANDERS ODONNELL MD Clinical Quality Measures AMI/AHF: ASA po Prior to arrival: No DVT/VTE Risk/Contraindication: Risk Factor Score Per Nursin RFS Level Per Nursing on Admit: 4+=Very High KAYCEE SCHMITT DO Dec 05, 2016 10:49
[2016-12-05] MEDS ORDERED: FLU TRIvalent (5 YOA+) 2016-17 (AFLURIA) 0.5 ML IM ONE (11:00)
[2016-12-05] MEDS ORDERED: METO50TA2 PO (11:28)
[2016-12-05] MEDS ORDERED: LEVO25TA2 PO (17:11)
--- NOTE | 2016-12-06 07:50 | STRESS TEST ---
PROCEDURE PHYSICIAN: BRANDIE HAMMER DATE OF PROCEDURE: LEXISCAN MYOVIEW STRESS TEST REPORT: REFERRING PHYSICIAN: Dr. Michelle INDICATION: Chest pain. BASELINE HEART RATE: 63 BASELINE BLOOD PRESSURE: 142/74 BASELINE EKG: Sinus rhythm with no ischemic changes. IN SUMMARY: The patient was injected with 10.91 mCi of technetium 99 Myoview and the resting images were obtained. Then the patient received 0.4 mg of Lexiscan followed by 29.9 mCi of technetium 99 Myoview. Throughout the test, there were no EKG changes. The resting and stress images were reviewed and compared in the short axis, horizontal long axis, and vertical long axis views. Review of the images showed breast attenuation with no significant ischemia or infarction. SSS is 0. TID 1.02. On the gated images, the left ventricle appeared to be normal size with normal contractility. Calculated ejection fraction 74%. IN CONCLUSION: 1. The patient tolerated Lexiscan well. 2. No ischemia or infarction on SPECT images. 3. Normal left ventricular size with normal contractility. Calculated ejection fraction 74%. Job ID: [id number] Dictated Date: 12/05/2016 18:44:17 Advertising Agency Manager Date: 12/06/2016 07:47:34 / vikas
--- OUTSIDE RECORDS SUMMARY | 2017-02-19 12:12 | XMS REPORT | Continuity of Care Document ---
Author Author [facility] Organization [facility] Address Unknown Phone Unavailable Allergies Active Description Code Type Severity Reaction Onset Reported/Identified Relationship to Patient Clinical Status Yes No Known Drug Allergies [id number] Drug Allergy Unknown N/ A 12/12/2014 Medications Problems Date Dx Coded Attending Type Code Diagnosis Diagnosed By 12/09/2014 VIVIAN SOFIA, CHIQUITA Prieto Ot V76.12 12/12/2014 EVGENY FINLEY MD Ot 427.31 ATRIAL FIBRILLATION 12/12/2014 EVGENY FINLEY MD Ot 599.0 URIN TRACT INFECTION NOS 12/12/2014 EVGENY FINLEY MD Ot 786.50 CHEST PAIN NOS 12/16/2014 Ot V10.3 12/16/2014 Ot V76.11 12/16/2014 VIVIAN SOFIA, CHIQUITA Prieto Ot V10.3 12/16/2014 CHIQUITA PARK MD Ot V76.11 12/16/2014 CHIQUITA PARK MD Ot V76.12 12/23/2014 Ot V10.3 12/23/2014 Ot V76.11 12/23/2014 CHIQUITA PARK MD Ot V10.3 12/23/2014 CHIQUITA PARK MD Ot V76.11 12/23/2014 CHIQUITA PARK MD Ot V76.12 12/23/2014 BRANDIE HAMMER MD Ot 427.31 12/23/2014 BRANDIE HAMMER MD Ot 427.61 12/23/2014 BRANDIE HAMMER MD Ot 428.9 12/23/2014 BRANDIE HAMMER MD Ot 786.50 12/24/2014 RAFAL MORE APRN Ot 593.2 12/30/2014 Ot 300.00 ANXIETY STATE NOS 12/30/2014 Ot 414.01 CORONARY ATHEROSCLEROSIS OF [place] CORON 12/30/2014 Ot 427.0 [place]OX ATRIAL TACHYCARDIA 12/30/2014 Ot 724.5 BACKACHE NOS 12/30/2014 Ot 786.09 RESPIRATORY ABNORM NEC 12/30/2014 Ot 786.50 CHEST PAIN NOS 12/30/2014 Ot V10.3 HX OF BREAST MALIGNANCY 12/30/2014 Ot V58.69 OTH MED,LT,CURRENT USE 07/29/2015 Ot 414.01 07/29/2015 Ot 427.0 07/29/2015 Ot 427.31 07/29/2015 Ot 427.9 07/29/2015 Ot 724.5 07/29/2015 Ot 780.2 07/29/2015 Ot 786.50 07/29/2015 Ot I25.10 07/29/2015 Ot I47.1 07/29/2015 Ot I48.91 07/29/2015 Ot I49.9 07/29/2015 Ot R07.9 07/29/2015 Ot R55 07/29/2015 Ot V10.3 07/29/2015 Ot V45.71 07/29/2015 Ot V58.69 07/29/2015 Ot Z85.3 07/29/2015 Ot Z90.10 08/12/2015 BRANDIE HAMMER MD Ot I10 ESSENTIAL (PRIMARY) HYPERTENSION 08/12/2015 BRANDIE HAMMER MD Ot I25.10 ATHSCL HEART DISEASE OF [place] CORONARY 08/12/2015 BRANDIE HAMMER MD Ot I48.91 UNSPECIFIED ATRIAL FIBRILLATION 08/12/2015 BRANDIE HAMMER MD Ot I49.5 SICK SINUS SYNDROME 08/12/2015 BRANDIE HAMMER MD Ot Z79.899 OTHER TOBACCO DIPPER (CURRENT) DRUG THERAPY 08/12/2015 BRANDIE HAMMER MD Ot Z85.3 PERSONAL HISTORY OF MALIGNANT NEOPLASM O 08/12/2015 BRANDIE HAMMER MD Ot Z90.11 ACQUIRED ABSENCE OF RIGHT BREAST AND NIP 08/12/2015 Ot 414.01 08/12/2015 Ot 427.0 08/12/2015 Ot 427.31 08/12/2015 Ot 427.9 08/12/2015 Ot 724.5 08/12/2015 Ot 780.2 08/12/2015 Ot 786.50 08/12/2015 Ot I25.10 08/12/2015 Ot I47.1 08/12/2015 Ot I48.91 08/12/2015 Ot I49.9 08/12/2015 Ot R07.9 08/12/2015 Ot R55 08/12/2015 Ot V10.3 08/12/2015 Ot V45.71 08/12/2015 Ot V58.69 08/12/2015 Ot Z85.3 08/12/2015 Ot Z90.10 08/17/2015 Ot 414.01 08/17/2015 Ot 427.0 08/17/2015 Ot 427.31 08/17/2015 Ot 427.9 08/17/2015 Ot 724.5 08/17/2015 Ot 780.2 08/17/2015 Ot 786.50 08/17/2015 Ot I25.10 08/17/2015 Ot I47.1 08/17/2015 Ot I48.91 08/17/2015 Ot I49.9 08/17/2015 Ot R07.9 08/17/2015 Ot R55 08/17/2015 Ot V10.3 08/17/2015 Ot V45.71 08/17/2015 Ot V58.69 08/17/2015 Ot Z85.3 08/17/2015 Ot Z90.10 08/25/2015 BRANDIE HAMMER MD Ot I25.10 ATHSCL HEART DISEASE OF [place] CORONARY 08/25/2015 BRANDIE HAMMER MD Ot I48.0 PAROXYSMAL ATRIAL FIBRILLATION 08/25/2015 BRANDIE HAMMER MD Ot I49.5 SICK SINUS SYNDROME 08/25/2015 BRANDIE HAMMER MD Ot J90 PLEURAL EFFUSION, NOT ELSEWHERE CLASSIFI 08/25/2015 BRANDIE HAMMER MD Ot M54.9 DORSALGIA, UNSPECIFIED 08/25/2015 BRANDIE HAMMER MD Ot Z85.3 PERSONAL HISTORY OF MALIGNANT NEOPLASM O 08/25/2015 BRANDIE HAMMER MD Ot Z95.0 PRESENCE OF CARDIAC PACEMAKER 09/06/2015 FARSHAD MARQUEZ Ot I25.10 09/06/2015 FARSHAD MARQUEZ Ot I48.0 09/06/2015 FARSHAD MARQUEZ Ot I49.1 09/06/2015 FARSHAD MARQUEZ Ot I50.22 09/13/2015 FARSHAD MARQUEZ Ot I25.10 09/13/2015 FARSHAD MARQUEZ Ot I48.0 09/13/2015 [facility] Kaiser Ot I49.1 09/13/2015 [facility] Kaiser Ot I50.22 09/15/2015 [facility] Kaiser Ot I25.10 09/15/2015 [facility], FARSHAD Kaiser Ot I48.0 09/15/2015 [facility] Kaiser Ot I49.1 09/15/2015 [facility] Kaiser Ot I50.22 09/15/2015 [facility] Kaiser Ot R06.02 09/15/2015 [facility] PA, FARSHAD Kaiser Ot R07.89 09/22/2015 [facility] PA, FARSHAD Kaiser Ot I25.10 09/22/2015 [facility] Kaiser Ot I48.0 09/22/2015 [facility] PA, FARSHAD Kaiser Ot I49.1 09/22/2015 [facility] PA, FARSHAD Kaiser Ot I50.22 09/22/2015 [facility] PA, FARSHAD Kaiser Ot R06.02 09/22/2015 [facility] PA, FARSHAD Kaiser Ot R07.89 09/27/2015 HARMAN SOFIA, BRANDIE Aldana Ot I25.10 09/27/2015 HARMAN SOFIA, BRANDIE Aldana Ot I48.0 09/27/2015 HARMAN SOFIA, BRANDIE Aldana Ot I49.1 09/27/2015 HARMAN SOFIA, BRANDIE Aldana Ot I50.22 11/30/2015 EVGENY FINLEY MD Ot I48.0 PAROXYSMAL ATRIAL FIBRILLATION 11/30/2015 EVGENY FINLEY MD Ot I49.5 SICK SINUS SYNDROME 11/30/2015 EVGENY FINLEY MD Ot J44.9 CHRONIC OBSTRUCTIVE PULMONARY DISEASE, U 11/30/2015 EVGENY FINLEY MD Ot M54.9 DORSALGIA, UNSPECIFIED 11/30/2015 EVGENY FINLEY MD Ot R07.89 OTHER CHEST PAIN 11/30/2015 EVGENY FINLEY MD Ot R10.31 RIGHT LOWER QUADRANT PAIN 11/30/2015 EVGENY FINLEY MD Ot Z85.3 PERSONAL HISTORY OF MALIGNANT NEOPLASM O 11/30/2015 MALIA SOFIA, EVGENY Kaiser Ot Z95.0 PRESENCE OF CARDIAC PACEMAKER 03/07/2016 MIRANDA MCGUIRE DO Ot J94.2 HEMOTHORAX 03/07/2016 MIRANDA MCGUIRE DO Ot R06.02 SHORTNESS OF BREATH 03/13/2016 Ot V10.3 HX OF BREAST MALIGNANCY 03/13/2016 Ot V76.11 SCRN MAMMO-HIGH RISK PT, MALIGNANT NEOPL 03/13/2016 CHIQUITA PARK MD Ot V10.3 HX OF BREAST MALIGNANCY 03/13/2016 CHIQUITA PARK MD Ot V76.11 SCRN MAMMO-HIGH RISK PT, MALIGNANT NEOPL 03/13/2016 CHIQUITA PARK MD Ot V76.12 OTH SCREEN MAMMO-MALIGN NEOPLASM OF [place] 03/13/2016 BRANDIE HAMMER MD Ot 427.31 ATRIAL FIBRILLATION 03/13/2016 BRANDIE HAMMER MD Ot 427.61 ATRIAL PREMATURE BEATS 03/13/2016 BRANDIE HAMMER MD Ot 428.9 HEART FAILURE NOS 03/13/2016 BRANDIE HAMMER MD Ot 786.50 CHEST PAIN NOS 03/13/2016 RAFAL MORE N SEAMER ELASTIC BAND Ot 593.2 CYST OF KIDNEY, ACQUIRED 03/13/2016 Ot 414.01 CORONARY ATHEROSCLEROSIS OF [place] CORON 03/13/2016 Ot 427.0 PAROX ATRIAL TACHYCARDIA 03/13/2016 Ot 427.31 ATRIAL FIBRILLATION 03/13/2016 Ot 427.9 CARDIAC DYSRHYTHMIA NOS 03/13/2016 Ot 724.5 BACKACHE NOS 03/13/2016 Ot 780.2 SYNCOPE AND COLLAPSE 03/13/2016 Ot 786.50 CHEST PAIN NOS 03/13/2016 Ot I25.10 ATHSCL HEART DISEASE OF [place] CORONARY 03/13/2016 Ot I47.1 SUPRAVENTRICULAR TACHYCARDIA 03/13/2016 Ot I48.91 UNSPECIFIED ATRIAL FIBRILLATION 03/13/2016 Ot I49.9 CARDIAC ARRHYTHMIA, UNSPECIFIED 03/13/2016 Ot R07.9 CHEST PAIN, UNSPECIFIED 03/13/2016 Ot R55 SYNCOPE AND COLLAPSE 03/13/2016 Ot V10.3 HX OF BREAST MALIGNANCY 03/13/2016 Ot V45.71 ACQUIRED ABSENCE OF BREAST AND NIPPLE 03/13/2016 Ot V58.69 OTH MED,LT,CURRENT USE 03/13/2016 Ot Z85.3 PERSONAL HISTORY OF MALIGNANT NEOPLASM O 03/13/2016 Ot Z90.10 ACQUIRED ABSENCE OF UNSPECIFIED BREAST A 03/13/2016 FARSHAD MARQUEZ Ot I25.10 ATHSCL HEART DISEASE OF [place] CORONARY 03/13/2016 FARSHAD MARQUEZ Ot I48.0 PAROXYSMAL ATRIAL FIBRILLATION 03/13/2016 FARSHAD MARQUEZ Ot I49.1 ATRIAL PREMATURE DEPOLARIZATION 03/13/2016 FARSHAD MARQUEZ Ot I50.22 CHRONIC SYSTOLIC (CONGESTIVE) HEART FAIL 03/13/2016 FARSHAD MARQUEZ Ot I25.10 ATHSCL HEART DISEASE OF [place] CORONARY 03/13/2016 FARSHAD MARQUEZ Ot I48.0 PAROXYSMAL ATRIAL FIBRILLATION 03/13/2016 FARSHAD MARQUEZ Ot I49.1 ATRIAL PREMATURE DEPOLARIZATION 03/13/2016 FARSHAD MARQUEZ Ot I50.22 CHRONIC SYSTOLIC (CONGESTIVE) HEART FAIL 03/13/2016 FARSHAD MARQUEZ Ot R06.02 SHORTNESS OF BREATH 03/13/2016 FARSHAD MARQUEZ Ot R07.89 OTHER CHEST PAIN 03/13/2016 BRANDIE HAMMER MD Ot I25.10 ATHSCL HEART DISEASE OF [place] CORONARY 03/13/2016 BRANDIE HAMMER MD Ot I48.0 PAROXYSMAL ATRIAL FIBRILLATION 03/13/2016 BRANDIE HAMMER MD Ot I49.1 ATRIAL PREMATURE DEPOLARIZATION 03/13/2016 BRANDIE HAMMER MD Ot I50.22 CHRONIC SYSTOLIC (CONGESTIVE) HEART FAIL 03/13/2016 MIRANDA MCGUIRE DO Ot J94.2 HEMOTHORAX 03/13/2016 MIRANDA MCGUIRE DO Ot R06.02 SHORTNESS OF BREATH 03/14/2016 FARSHAD MARQUEZ Ot I25.10 ATHSCL HEART DISEASE OF [place] CORONARY 03/14/2016 FARSHAD MARQUEZ Ot I48.0 PAROXYSMAL ATRIAL FIBRILLATION 03/14/2016 FARSHAD MARQUEZ Ot I49.1 ATRIAL PREMATURE DEPOLARIZATION 03/14/2016 MIRNA MARQUEZDITH K Ot I50.22 CHRONIC SYSTOLIC (CONGESTIVE) HEART FAIL 03/19/2016 ADAFREDRICK HILLFARSHAD Ot I25.10 ATHSCL HEART DISEASE OF [place] CORONARY 03/19/2016 TOMAS SERGIOFARSHAD Ot I48.0 PAROXYSMAL ATRIAL FIBRILLATION 03/19/2016 TOMAS SERGIOFARSHAD Ot I49.1 ATRIAL PREMATURE DEPOLARIZATION 03/19/2016 ADAFREDRICK HILLFARSHAD Ot I50.22 CHRONIC SYSTOLIC (CONGESTIVE) HEART FAIL 03/28/2016 MIRANDA MCGUIRE DO Ot J94.2 HEMOTHORAX 03/28/2016 MIRANDA MCGUIRE DO Ot R06.02 SHORTNESS OF BREATH 04/03/2016 ADAFREDRICK HILL FARSHAD Awilda Ot I25.10 ATHSCL HEART DISEASE OF [place] CORONARY 04/03/2016 TOMAS SERGIO FARSHAD Kaiser Ot I48.0 PAROXYSMAL ATRIAL FIBRILLATION 04/03/2016 [place]-[facility]ICK HILL FARSHAD Awilda Ot I49.1 ATRIAL PREMATURE DEPOLARIZATION 04/03/2016 TOMAS SERGIO FARSHAD Kaiser Ot I50.22 CHRONIC SYSTOLIC (CONGESTIVE) HEART FAIL 04/05/2016 MIRANDA MCGUIRE DO Ot J94.2 HEMOTHORAX 04/05/2016 MIRANDA MCGUIRE DO Ot R06.02 SHORTNESS OF BREATH 04/11/2016 ADAFREDRICK HILL FARSHAD Kaiser Ot I25.10 ATHSCL HEART DISEASE OF [place] CORONARY 04/11/2016 ADAFREDRICK HILL FARSHAD Kaiser Ot I48.0 PAROXYSMAL ATRIAL FIBRILLATION 04/11/2016 [facility] H[facility] FARSHAD Kaiser Ot I49.1 ATRIAL PREMATURE DEPOLARIZATION 04/11/2016 ADAFREDRICK HILL FARSHAD Kaiser Ot I50.22 CHRONIC SYSTOLIC (CONGESTIVE) HEART FAIL 04/16/2016 Ot V10.3 HX OF BREAST MALIGNANCY 04/16/2016 Ot V76.11 SCRN MAMMO-HIGH RISK PT, MALIGNANT NEOPL 04/16/2016 CHIQUITA PARK MD Ot V10.3 HX OF BREAST MALIGNANCY 04/16/2016 CHIQUITA PARK MD Ot V76.11 SCRN MAMMO-HIGH RISK PT, MALIGNANT NEOPL 04/16/2016 MELISSA PARK MDVING E Ot V76.12 OTH SCREEN MAMMO-MALIGN NEOPLASM OF [place] 04/16/2016 BRANDIE HAMMER MD Ot 427.31 ATRIAL FIBRILLATION 04/16/2016 BRANDIE HAMMER MD Ot 427.61 ATRIAL PREMATURE BEATS 04/16/2016 BRANDIE HAMMER MD Ot 428.9 HEART FAILURE NOS 04/16/2016 BRANDIE HAMMER MD Ot 786.50 CHEST PAIN NOS 04/16/2016 MORE DARCYDOREEN N SEAMER ELASTIC BAND Ot 593.2 CYST OF KIDNEY, ACQUIRED 04/16/2016 Ot 414.01 CORONARY ATHEROSCLEROSIS OF [place] CORON 04/16/2016 Ot 427.0 PAROX ATRIAL TACHYCARDIA 04/16/2016 Ot 427.31 ATRIAL FIBRILLATION 04/16/2016 Ot 427.9 CARDIAC DYSRHYTHMIA NOS 04/16/2016 Ot 724.5 BACKACHE NOS 04/16/2016 Ot 780.2 SYNCOPE AND COLLAPSE 04/16/2016 Ot 786.50 CHEST PAIN NOS 04/16/2016 Ot I25.10 ATHSCL HEART DISEASE OF [place] CORONARY 04/16/2016 Ot I47.1 SUPRAVENTRICULAR TACHYCARDIA 04/16/2016 Ot I48.91 UNSPECIFIED ATRIAL FIBRILLATION 04/16/2016 Ot I49.9 CARDIAC ARRHYTHMIA, UNSPECIFIED 04/16/2016 Ot R07.9 CHEST PAIN, UNSPECIFIED 04/16/2016 Ot R55 SYNCOPE AND COLLAPSE 04/16/2016 Ot V10.3 HX OF BREAST MALIGNANCY 04/16/2016 Ot V45.71 ACQUIRED ABSENCE OF BREAST AND NIPPLE 04/16/2016 Ot V58.69 OTH MED,LT,CURRENT USE 04/16/2016 Ot Z85.3 PERSONAL HISTORY OF MALIGNANT NEOPLASM O 04/16/2016 Ot Z90.10 ACQUIRED ABSENCE OF UNSPECIFIED BREAST A 04/16/2016 FARSHAD MARQUEZ Ot I25.10 ATHSCL HEART DISEASE OF [place] CORONARY 04/16/2016 FARSHAD MARQUEZ Ot I48.0 PAROXYSMAL ATRIAL FIBRILLATION 04/16/2016 FARSHAD MARQUEZ Ot I49.1 ATRIAL PREMATURE DEPOLARIZATION 04/16/2016 FARSHAD MARQUEZ Ot I50.22 CHRONIC SYSTOLIC (CONGESTIVE) HEART FAIL 04/16/2016 FARSHAD MARQUEZ Ot I25.10 ATHSCL HEART DISEASE OF [place] CORONARY 04/16/2016 FARSHAD MARQUEZ Ot I48.0 PAROXYSMAL ATRIAL FIBRILLATION 04/16/2016 FARSHAD MARQUEZ Ot I49.1 ATRIAL PREMATURE DEPOLARIZATION 04/16/2016 FARSHAD MARQUEZ Ot I50.22 CHRONIC SYSTOLIC (CONGESTIVE) HEART FAIL 04/16/2016 FARSHAD MARQUEZ Ot R06.02 SHORTNESS OF BREATH 04/16/2016 FARSHAD MARQUEZ Ot R07.89 OTHER CHEST PAIN 04/16/2016 HARMAN SOFIA, BRANDIE Aldana Ot I25.10 ATHSCL HEART DISEASE OF [place] CORONARY 04/16/2016 BRANDIE HAMMER MD Ot I48.0 PAROXYSMAL ATRIAL FIBRILLATION 04/16/2016 BRANDIE HAMMER MD Ot I49.1 ATRIAL PREMATURE DEPOLARIZATION 04/16/2016 BRANDIE HMAMER MD Ot I50.22 CHRONIC SYSTOLIC (CONGESTIVE) HEART FAIL 04/16/2016 MIRANDA MCGUIRE DO Ot J94.2 HEMOTHORAX 04/16/2016 MIRANDA MCGUIRE DO Ot R06.02 SHORTNESS OF BREATH 04/16/2016 FARSHAD MARQUEZ Ot I25.10 ATHSCL HEART DISEASE OF [place] CORONARY 04/16/2016 FARSHAD MARQUEZ Ot I48.0 PAROXYSMAL ATRIAL FIBRILLATION 04/16/2016 FARSHAD MARQUEZ Ot I49.1 ATRIAL PREMATURE DEPOLARIZATION 04/16/2016 FARSHAD MARQUEZ Ot I50.22 CHRONIC SYSTOLIC (CONGESTIVE) HEART FAIL 04/16/2016 TUNDE NAIR DOA Awilda Ot N28.1 CYST OF KIDNEY, ACQUIRED 04/16/2016 KOREY DO PEDRO K Ot N39.0 URINARY TRACT INFECTION, SITE NOT SPECIF 04/16/2016 TUNDE NAIR DOA Awilda Ot R07.89 OTHER CHEST PAIN 04/16/2016 KOREY MCKENNA PEDRO Awilda Ot R31.2 OTHER MICROSCOPIC HEMATURIA 04/16/2016 TUNDE NAIR DOA K Ot Z95.0 PRESENCE OF CARDIAC PACEMAKER 04/18/2016 KOREY TUNDE MCKENNAA K Ot N28.1 CYST OF KIDNEY, ACQUIRED 04/18/2016 KOREY MCKENNA PEDRO K Ot N39.0 URINARY TRACT INFECTION, SITE NOT SPECIF 04/18/2016 [place] DO, PEDRO K Ot R07.89 OTHER CHEST PAIN 04/18/2016 [place] DO, PEDRO K Ot R31.2 OTHER MICROSCOPIC HEMATURIA 04/18/2016 [place]Y DO, PEDRO K Ot Z95.0 PRESENCE OF CARDIAC PACEMAKER 05/02/2016 [place] DO, PEDOR K Ot N28.1 CYST OF KIDNEY, ACQUIRED 05/02/2016 [place] DO, PEDRO K Ot N39.0 URINARY TRACT INFECTION, SITE NOT SPECIF 05/02/2016 [place] DO, PEDRO K Ot R07.89 OTHER CHEST PAIN 05/02/2016 [place]OREY DO, PEDRO K Ot R31.2 OTHER MICROSCOPIC HEMATURIA 05/02/2016 [place]ORE[place] DO, PEDRO K Ot Z95.0 PRESENCE OF CARDIAC PACEMAKER 06/27/2016 MABEL SOFIA, CRISTY Ring Ot A41.9 SEPSIS, UNSPECIFIED ORGANISM 06/27/2016 CRISTY MONROE MD Ot B99.9 UNSPECIFIED INFECTIOUS DISEASE 06/27/2016 CRISTY MONROE MD Ot I25.10 ATHSCL HEART DISEASE OF [place] CORONARY 06/27/2016 CRISTY MONROE MD Ot I48.0 PAROXYSMAL ATRIAL FIBRILLATION 06/27/2016 CRISTY MONROE MD Ot I50.9 HEART FAILURE, UNSPECIFIED 06/27/2016 CRISTY MONROE MD Ot J18.9 PNEUMONIA, UNSPECIFIED ORGANISM 06/27/2016 CRISTY MONROE MD Ot R04.2 HEMOPTYSIS 06/27/2016 CRISTY MONROE MD Ot R93.8 ABNORMAL FINDINGS ON DIAGNOSTIC IMAGING 06/27/2016 MABEL SOFIA, CRISTY Ring Ot Z85.3 PERSONAL HISTORY OF MALIGNANT NEOPLASM O 06/27/2016 CRISTY MONROE MD Ot Z95.0 PRESENCE OF CARDIAC PACEMAKER 06/28/2016 CRISTY MONROE MD Ot A41.9 SEPSIS, UNSPECIFIED ORGANISM 06/28/2016 CRISTY MONROE MD Ot D64.9 ANEMIA, UNSPECIFIED 06/28/2016 CRISTY MONROE MD Ot I25.10 ATHSCL HEART DISEASE OF [place] CORONARY 06/28/2016 CRISTY MONROE MD Ot I48.0 PAROXYSMAL ATRIAL FIBRILLATION 06/28/2016 CRISTY MONROE MD Ot I50.9 HEART FAILURE, UNSPECIFIED 06/28/2016 CRISTY MONROE MD Ot J18.9 PNEUMONIA, UNSPECIFIED ORGANISM 06/28/2016 MABEL SOFIA, CRISTY Ring Ot K21.9 GASTRO-ESOPHAGEAL REFLUX DISEASE WITHOUT 06/28/2016 MABEL SOFIA, CRISTY Ring Ot R04.2 HEMOPTYSIS 06/28/2016 CRISTY MONROE MD Ot R54 AGE-RELATED PHYSICAL DEBILITY 06/28/2016 CRISTY MONROE MD Ot R63.0 ANOREXIA 06/28/2016 CRISTY MONROE MD Ot R93.8 ABNORMAL FINDINGS ON DIAGNOSTIC IMAGING 06/28/2016 MABEL SOFIA, CRISTY Ring Ot Z85.3 PERSONAL HISTORY OF MALIGNANT NEOPLASM O 06/28/2016 MABEL SOFIA, CRISTY Ring Ot Z95.0 PRESENCE OF CARDIAC PACEMAKER 12/03/2016 Ot V10.3 HX OF BREAST MALIGNANCY 12/03/2016 Ot V76.11 SCRN MAMMO-HIGH RISK PT, MALIGNANT NEOPL 12/03/2016 CHIQUITA PARK MD Ot V10.3 HX OF BREAST MALIGNANCY 12/03/2016 CHIQUITA PARK MD Ot V76.11 SCRN MAMMO-HIGH RISK PT, MALIGNANT NEOPL 12/03/2016 CHIQUITA PARK MD Ot V76.12 OTH SCREEN MAMMO-MALIGN NEOPLASM OF [place]UL[place] 12/03/2016 BRANDIE HAMMER MD Ot 427.31 ATRIAL FIBRILLATION 12/03/2016 BRANDIE HAMMER MD Ot 427.61 ATRIAL PREMATURE BEATS 12/03/2016 BRANDIE HAMMER MD Ot 428.9 HEART FAILURE NOS 12/03/2016 BRANDIE HAMMER MD Ot 786.50 CHEST PAIN NOS 12/03/2016 RAFAL MORE SEAMER ELASTIC BAND Ot 593.2 CYST OF KIDNEY, ACQUIRED 12/03/2016 Ot 414.01 CORONARY ATHEROSCLEROSIS OF [place] CORON 12/03/2016 Ot 427.0 PAROX ATRIAL TACHYCARDIA 12/03/2016 Ot 427.31 ATRIAL FIBRILLATION 12/03/2016 Ot 427.9 CARDIAC DYSRHYTHMIA NOS 12/03/2016 Ot 724.5 BACKACHE NOS 12/03/2016 Ot 780.2 SYNCOPE AND COLLAPSE 12/03/2016 Ot 786.50 CHEST PAIN NOS 12/03/2016 Ot I25.10 ATHSCL HEART DISEASE OF [place] CORONARY 12/03/2016 Ot I47.1 SUPRAVENTRICULAR TACHYCARDIA 12/03/2016 Ot I48.91 UNSPECIFIED ATRIAL FIBRILLATION 12/03/2016 Ot I49.9 CARDIAC ARRHYTHMIA, UNSPECIFIED 12/03/2016 Ot R07.9 CHEST PAIN, UNSPECIFIED 12/03/2016 Ot R55 SYNCOPE AND COLLAPSE 12/03/2016 Ot V10.3 HX OF BREAST MALIGNANCY 12/03/2016 Ot V45.71 ACQUIRED ABSENCE OF BREAST AND NIPPLE 12/03/2016 Ot V58.69 OTH MED,LT,CURRENT USE 12/03/2016 Ot Z85.3 PERSONAL HISTORY OF MALIGNANT NEOPLASM O 12/03/2016 Ot Z90.10 ACQUIRED ABSENCE OF UNSPECIFIED BREAST A 12/03/2016 FARSHAD MARQUEZ Ot I25.10 ATHSCL HEART DISEASE OF [place] CORONARY 12/03/2016 FARSHAD MARQUEZ Ot I48.0 PAROXYSMAL ATRIAL FIBRILLATION 12/03/2016 FARSHAD MARQUEZ Ot I49.1 ATRIAL PREMATURE DEPOLARIZATION 12/03/2016 FARSHAD MARQUEZ Ot I50.22 CHRONIC SYSTOLIC (CONGESTIVE) HEART FAIL 12/03/2016 FARSHAD MARQUEZ Ot I25.10 ATHSCL HEART DISEASE OF [place] CORONARY 12/03/2016 FARSHAD MARQUEZ Ot I48.0 PAROXYSMAL ATRIAL FIBRILLATION 12/03/2016 FARSHAD MARQUEZ Ot I49.1 ATRIAL PREMATURE DEPOLARIZATION 12/03/2016 FARSHAD MARQUEZ Ot I50.22 CHRONIC SYSTOLIC (CONGESTIVE) HEART FAIL 12/03/2016 FARSHAD MARQUEZ Ot R06.02 SHORTNESS OF BREATH 12/03/2016 FARSHAD MARQUEZ Ot R07.89 OTHER CHEST PAIN 12/03/2016 BRANDIE HAMMER MD Ot I25.10 ATHSCL HEART DISEASE OF [place] CORONARY 12/03/2016 BRANDIE HAMMER MD Ot I48.0 PAROXYSMAL ATRIAL FIBRILLATION 12/03/2016 BRANDIE HAMMER MD Ot I49.1 ATRIAL PREMATURE DEPOLARIZATION 12/03/2016 BRANDIE HAMMER MD Ot I50.22 CHRONIC SYSTOLIC (CONGESTIVE) HEART FAIL 12/03/2016 MIRANDA MCGUIRE DO Ot J94.2 HEMOTHORAX 12/03/2016 MIRANDA MCGUIRE DO Ot R06.02 SHORTNESS OF BREATH 12/03/2016 FARSHAD MARQUEZ Ot I25.10 ATHSCL HEART DISEASE OF [place] CORONARY 12/03/2016 FARSHAD MARQUEZ Ot I48.0 PAROXYSMAL ATRIAL FIBRILLATION 12/03/2016 FARSHAD MARQUEZ Ot I49.1 ATRIAL PREMATURE DEPOLARIZATION 12/03/2016 FARSHAD MARQUEZ Ot I50.22 CHRONIC SYSTOLIC (CONGESTIVE) HEART FAIL 12/04/2016 BRANDIE HAMMER MD Ot I25.10 ATHSCL HEART DISEASE OF [place] CORONARY 12/04/2016 BRANDIE HAMMER MD Ot I48.0 PAROXYSMAL ATRIAL FIBRILLATION 12/04/2016 BRANDIE HAMMER MD Ot I50.22 CHRONIC SYSTOLIC (CONGESTIVE) HEART FAIL 12/04/2016 BRANDIE HAMMER MD Ot R06.02 SHORTNESS OF BREATH 12/04/2016 BRANDIE HAMMER MD Ot R07.89 OTHER CHEST PAIN 12/05/2016 EVGENY FINLEY MD Ot D64.9 ANEMIA, UNSPECIFIED 12/05/2016 EVGENY FINLEY MD Ot E78.5 HYPERLIPIDEMIA, UNSPECIFIED 12/05/2016 EVGENY FINLEY MD Ot I10 ESSENTIAL (PRIMARY) HYPERTENSION 12/05/2016 EVGENY FINLEY MD Ot I25.10 ATHSCL HEART DISEASE OF [place] CORONARY 12/05/2016 EVGENY FINLEY MD Ot I47.2 VENTRICULAR TACHYCARDIA 12/05/2016 EVGENY FINLEY MD Ot I48.0 PAROXYSMAL ATRIAL FIBRILLATION 12/05/2016 EVGENY FINLEY MD Ot 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[place] 12/05/2016 EVGENY FINLEY MD Ot J90 PLEURAL EFFUSION, NOT ELSEWHERE CLASSIFI 12/05/2016 EVGENY FINLEY MD Ot M54.9 DORSALGIA, UNSPECIFIED 12/05/2016 EVGENY FINLEY MD Ot R07.89 OTHER CHEST PAIN 12/05/2016 EVGENY FINLEY MD Ot Z85.3 PERSONAL HISTORY OF MALIGNANT NEOPLASM O 12/05/2016 EVGENY FINLEY MD Ot Z90.11 ACQUIRED ABSENCE OF RIGHT BREAST AND NIP 12/05/2016 EVGENY FINLEY MD Ot Z95.0 PRESENCE OF CARDIAC PACEMAKER 12/05/2016 EVGENY FINLEY MD Ot D64.9 ANEMIA, UNSPECIFIED 12/05/2016 EVGENY FINLEY MD Ot E78.5 HYPERLIPIDEMIA, UNSPECIFIED 12/05/2016 EVGENY FINLEY MD Ot I10 ESSENTIAL (PRIMARY) HYPERTENSION 12/05/2016 EVGENY FINLEY MD Ot I25.10 ATHSCL HEART DISEASE OF [place] CORONARY 12/05/2016 EVGENY FINLEY MD Ot I47.2 VENTRICULAR TACHYCARDIA 12/05/2016 EVGENY FINLEY MD Ot I48.0 PAROXYSMAL ATRIAL FIBRILLATION 12/05/2016 EVGENY FINLEY MD Ot 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[place] 12/05/2016 EVGENY FINLEY MD Ot J90 PLEURAL EFFUSION, NOT ELSEWHERE CLASSIFI 12/05/2016 EVGENY FINLEY MD Ot M54.9 DORSALGIA, UNSPECIFIED 12/05/2016 EVGENY FINLEY MD Ot R07.89 OTHER CHEST PAIN 12/05/2016 EVGENY FINLEY MD Ot Z85.3 PERSONAL HISTORY OF MALIGNANT NEOPLASM O 12/05/2016 EVGENY FINLEY MD Ot Z90.11 ACQUIRED ABSENCE OF RIGHT BREAST AND NIP 12/05/2016 EVGENY FINLEY MD Ot Z95.0 PRESENCE OF CARDIAC PACEMAKER 12/09/2016 BRANDIE HAMMER MD Ot I25.10 ATHSCL HEART DISEASE OF [place] CORONARY 12/09/2016 BRANDIE HAMMER MD Ot I48.0 PAROXYSMAL ATRIAL FIBRILLATION 12/09/2016 BRANDIE HAMMER MD Ot I50.22 CHRONIC SYSTOLIC (CONGESTIVE) HEART FAIL 12/09/2016 BRANDIE HAMMER MD Ot R06.02 SHORTNESS OF BREATH 12/09/2016 BRANDIE HAMMER MD Ot R07.89 OTHER CHEST PAIN 01/01/2017 BRANDIE HAMMER MD Ot I25.10 ATHSCL HEART DISEASE OF [place] CORONARY 01/01/2017 BRANDIE HAMMER MD Ot I48.0 PAROXYSMAL ATRIAL FIBRILLATION 01/01/2017 BRANDIE HAMMER MD Ot I50.22 CHRONIC SYSTOLIC (CONGESTIVE) HEART FAIL 01/01/2017 BRANDIE HAMMER MD Ot R06.02 SHORTNESS OF BREATH 01/01/2017 BRANDIE HAMMER MD Ot R07.89 OTHER CHEST PAIN Procedures Code Description Performed By Performed On [id number] DRAINAGE OF LEFT PLEURA WITH DRAINAGE DE 08/24/2015 Results Test Result Range Complete blood count (CBC) with automated white blood cell (WBC) differential - 06/25/16 20:28 Blood leukocytes automated count (number/volume) 17.6 10*3/ uL 4.3-11.0 Blood erythrocytes automated count (number/volume) 4.44 10*6 /uL 4.35-5.85 Venous blood hemoglobin measurement (mass/volume) 12.9 g/dL 11.5-16.0 Blood hematocrit (volume fraction) 39 % 35-52 Automated erythrocyte mean corpuscular volume 89 [foz_us] 80-99 Automated erythrocyte mean corpuscular hemoglobin (mass per erythrocyte) 29 pg 25-34 Automated erythrocyte mean corpuscular hemoglobin concentration measurement ( mass/volume) 33 g/dL 32-36 Automated erythrocyte distribution width ratio 14.1 % 10.0-14.5 Automated blood platelet count (count/volume) 216 10*3/uL 130-400 Automated blood platelet mean volume measurement 11.5 [foz_ us] 7.4-10.4 Automated blood neutrophils/100 leukocytes 90 % 42-75 Automated blood lymphocytes/100 leukocytes 4 % 12-44 Blood monocytes/100 leukocytes 5 % 0-12 Automated blood eosinophils/100 leukocytes 1 % 0-10 Automated blood basophils/100 leukocytes 0 % 0-10 Blood neutrophils automated count (number/volume) 15.7 10*3 1.8-7.8 Blood lymphocytes automated count (number/volume) 0.8 10*3 1.0-4.0 Blood monocytes automated count (number/volume) 0.9 10*3 0.0-1.0 Automated eosinophil count 0.2 10*3/uL 0.0-0.3 Automated blood basophil count (count/volume) 0.0 10*3/uL 0.0-0.1 Blood manual differential performed detection - 06/25/16 20:28 Blood monocytes/100 leukocytes 4 % NRG Manual blood segmented neutrophils/100 leukocytes 87 % NRG Blood band neutrophils/100 leukocytes 4 % NRG Manual blood lymphocytes/100 leukocytes 4 % NRG Manual eosinophils/100 leukocytes in nose 1 % NRG Manual blood basophils/100 leukocytes 0 % NRG Blood erythrocyte morphology finding identification NORMAL NRG Serum or plasma lithium measurement (moles/volume) - 06/25/16 20:28 BNP level 100.8 pg/mL <100.0 Comprehensive metabolic panel - 06/25/16 20:28 Serum or plasma sodium measurement (moles/volume) 136 mmol/ L 135-145 Serum or plasma potassium measurement (moles/volume) 3.9 mmol/L 3.6-5.0 Serum or plasma chloride measurement (moles/volume) 99 mmol/ L 98-107 Carbon dioxide 27 mmol/L 21-32 Serum or plasma anion gap determination (moles/volume) 10 mmol/L 5-14 Serum or plasma urea nitrogen measurement (mass/volume) 23 mg/dL 7-18 Serum or plasma creatinine measurement (mass/volume) 0.81 mg /dL 0.60-1.30 Serum or plasma urea nitrogen/creatinine mass ratio 28 NRG Serum or plasma creatinine measurement with calculation of estimated glomerular filtration rate > NRG Serum or plasma glucose measurement (mass/volume) 130 mg/dL 70-105 Serum or plasma calcium measurement (mass/volume) 9.5 mg/dL 8.5-10.1 Serum or plasma total bilirubin measurement (mass/volume) 0.7 mg/dL 0.1-1.0 Serum or plasma alkaline phosphatase measurement (enzymatic activity/volume) 76 U/L 40-136 Serum or plasma aspartate aminotransferase measurement (enzymatic activity/ volume) 22 U/L 5-34 Serum or plasma alanine aminotransferase measurement (enzymatic activity/volume ) 17 U/L 0-55 Serum or plasma protein measurement (mass/volume) 7.0 g/dL 6.4-8.2 Serum or plasma albumin measurement (mass/volume) 4.3 g/dL 3.2-4.5 Serum or plasma troponin i.cardiac measurement (mass/volume) - 06/25/16 20:28 Serum or plasma troponin i.cardiac measurement (mass/volume) < ng/mL <0.30 Blood lactic acid measurement (moles/volume) - 06/25/16 21:11 Blood lactic acid measurement (moles/volume) 1.1 mmol/L 0.5-2.0 Bacterial blood culture - 06/25/16 21:11 Bacterial blood culture NG NRG Sputum Gram stain - 06/25/16 21:17 Bacterial sputum culture - 06/25/16 21:17 Bacterial blood culture - 08/15/16 21:23 Bacterial blood culture NG NRG Complete blood count (CBC) with automated white blood cell (WBC) differential - 06/26/16 05:23 Blood leukocytes automated count (number/volume) 17.1 10*3/ uL 4.3-11.0 Blood erythrocytes automated count (number/volume) 3.74 10*6 /uL 4.35-5.85 Venous blood hemoglobin measurement (mass/volume) 10.8 g/dL 11.5-16.0 Blood hematocrit (volume fraction) 33 % 35-52 Automated erythrocyte mean corpuscular volume 89 [foz_us] 80-99 Automated erythrocyte mean corpuscular hemoglobin (mass per erythrocyte) 29 pg 25-34 Automated erythrocyte mean corpuscular hemoglobin concentration measurement ( mass/volume) 33 g/dL 32-36 Automated erythrocyte distribution width ratio 14.3 % 10.0-14.5 Automated blood platelet count (count/volume) 176 10*3/uL 130-400 Automated blood platelet mean volume measurement 11.3 [foz_ us] 7.4-10.4 Automated blood neutrophils/100 leukocytes 90 % 42-75 Automated blood lymphocytes/100 leukocytes 5 % 12-44 Blood monocytes/100 leukocytes 5 % 0-12 Automated blood eosinophils/100 leukocytes 0 % 0-10 Automated blood basophils/100 leukocytes 0 % 0-10 Blood neutrophils automated count (number/volume) 15.4 10*3 1.8-7.8 Blood lymphocytes automated count (number/volume) 0.8 10*3 1.0-4.0 Blood monocytes automated count (number/volume) 0.9 10*3 0.0-1.0 Automated eosinophil count 0.1 10*3/uL 0.0-0.3 Automated blood basophil count (count/volume) 0.0 10*3/uL 0.0-0.1 Complete blood count (CBC) with automated white blood cell (WBC) differential - 06/27/16 05:15 Blood leukocytes automated count (number/volume) 12.2 10*3/ uL 4.3-11.0 Blood erythrocytes automated count (number/volume) 3.74 10*6 /uL 4.35-5.85 Venous blood hemoglobin measurement (mass/volume) 10.9 g/dL 11.5-16.0 Blood hematocrit (volume fraction) 33 % 35-52 Automated erythrocyte mean corpuscular volume 89 [foz_us] 80-99 Automated erythrocyte mean corpuscular hemoglobin (mass per erythrocyte) 29 pg 25-34 Automated erythrocyte mean corpuscular hemoglobin concentration measurement ( mass/volume) 33 g/dL 32-36 Automated erythrocyte distribution width ratio 14.3 % 10.0-14.5 Automated blood platelet count (count/volume) 178 10*3/uL 130-400 Automated blood platelet mean volume measurement 11.5 [foz_ us] 7.4-10.4 Automated blood neutrophils/100 leukocytes 87 % 42-75 Automated blood lymphocytes/100 leukocytes 6 % 12-44 Blood monocytes/100 leukocytes 6 % 0-12 Automated blood eosinophils/100 leukocytes 1 % 0-10 Automated blood basophils/100 leukocytes 0 % 0-10 Blood neutrophils automated count (number/volume) 10.6 10*3 1.8-7.8 Blood lymphocytes automated count (number/volume) 0.7 10*3 1.0-4.0 Blood monocytes automated count (number/volume) 0.8 10*3 0.0-1.0 Automated eosinophil count 0.1 10*3/uL 0.0-0.3 Automated blood basophil count (count/volume) 0.0 10*3/uL 0.0-0.1 Whole blood basic metabolic panel - 06/27/16 05:15 Serum or plasma sodium measurement (moles/volume) 139 mmol/ L 135-145 Serum or plasma potassium measurement (moles/volume) 3.7 mmol/L 3.6-5.0 Serum or plasma chloride measurement (moles/volume) 104 mmol /L 98-107 Carbon dioxide 23 mmol/L 21-32 Serum or plasma anion gap determination (moles/volume) 12 mmol/L 5-14 Serum or plasma urea nitrogen measurement (mass/volume) 10 mg/dL 7-18 Serum or plasma creatinine measurement (mass/volume) 0.68 mg /dL 0.60-1.30 Serum or plasma urea nitrogen/creatinine mass ratio 15 NRG Serum or plasma creatinine measurement with calculation of estimated glomerular filtration rate > NRG Serum or plasma glucose measurement (mass/volume) 103 mg/dL 70-105 Serum or plasma calcium measurement (mass/volume) 9.0 mg/dL 8.5-10.1 Complete blood count (CBC) with automated white blood cell (WBC) differential - 06/28/16 04:27 Blood leukocytes automated count (number/volume) 10.3 10*3/ uL 4.3-11.0 Blood erythrocytes automated count (number/volume) 3.66 10*6 /uL 4.35-5.85 Venous blood hemoglobin measurement (mass/volume) 10.5 g/dL 11.5-16.0 Blood hematocrit (volume fraction) 33 % 35-52 Automated erythrocyte mean corpuscular volume 89 [foz_us] 80-99 Automated erythrocyte mean corpuscular hemoglobin (mass per erythrocyte) 29 pg 25-34 Automated erythrocyte mean corpuscular hemoglobin concentration measurement ( mass/volume) 32 g/dL 32-36 Automated erythrocyte distribution width ratio 14.4 % 10.0-14.5 Automated blood platelet count (count/volume) 179 10*3/uL 130-400 Automated blood platelet mean volume measurement 11.8 [foz_ us] 7.4-10.4 Automated blood neutrophils/100 leukocytes 86 % 42-75 Automated blood lymphocytes/100 leukocytes 7 % 12-44 Blood monocytes/100 leukocytes 6 % 0-12 Automated blood eosinophils/100 leukocytes 2 % 0-10 Automated blood basophils/100 leukocytes 0 % 0-10 Blood neutrophils automated count (number/volume) 8.9 10*3 1.8-7.8 Blood lymphocytes automated count (number/volume) 0.7 10*3 1.0-4.0 Blood monocytes automated count (number/volume) 0.6 10*3 0.0-1.0 Automated eosinophil count 0.2 10*3/uL 0.0-0.3 Automated blood basophil count (count/volume) 0.0 10*3/uL 0.0-0.1 Comprehensive metabolic panel - 06/28/16 04:27 Serum or plasma sodium measurement (moles/volume) 139 mmol/ L 135-145 Serum or plasma potassium measurement (moles/volume) 3.8 mmol/L 3.6-5.0 Serum or plasma chloride measurement (moles/volume) 105 mmol /L 98-107 Carbon dioxide 25 mmol/L 21-32 Serum or plasma anion gap determination (moles/volume) 9 mmol/L 5-14 Serum or plasma urea nitrogen measurement (mass/volume) 16 mg/dL 7-18 Serum or plasma creatinine measurement (mass/volume) 0.69 mg /dL 0.60-1.30 Serum or plasma urea nitrogen/creatinine mass ratio 23 NRG Serum or plasma creatinine measurement with calculation of estimated glomerular filtration rate > NRG Serum or plasma glucose measurement (mass/volume) 111 mg/dL 70-105 Serum or plasma calcium measurement (mass/volume) 8.9 mg/dL 8.5-10.1 Serum or plasma total bilirubin measurement (mass/volume) 0.5 mg/dL 0.1-1.0 Serum or plasma alkaline phosphatase measurement (enzymatic activity/volume) 47 U/L 40-136 Serum or plasma aspartate aminotransferase measurement (enzymatic activity/ volume) 14 U/L 5-34 Serum or plasma alanine aminotransferase measurement (enzymatic activity/volume ) 9 U/L 0-55 Serum or plasma protein measurement (mass/volume) 5.7 g/dL 6.4-8.2 Serum or plasma albumin measurement (mass/volume) 3.3 g/dL 3.2-4.5 Comprehensive metabolic panel - 12/03/16 15:13 Serum or plasma sodium measurement (moles/volume) 138 mmol/ L 135-145 Serum or plasma potassium measurement (moles/volume) 3.8 mmol/L 3.6-5.0 Serum or plasma chloride measurement (moles/volume) 101 mmol /L 98-107 Carbon dioxide 28 mmol/L 21-32 Serum or plasma anion gap determination (moles/volume) 9 mmol/L 5-14 Serum or plasma urea nitrogen measurement (mass/volume) 13 mg/dL 7-18 Serum or plasma creatinine measurement (mass/volume) 0.94 mg /dL 0.60-1.30 Serum or plasma urea nitrogen/creatinine mass ratio 14 NRG Serum or plasma creatinine measurement with calculation of estimated glomerular filtration rate 57 NRG Serum or plasma glucose measurement (mass/volume) 80 mg/dL 70-105 Serum or plasma calcium measurement (mass/volume) 9.3 mg/dL 8.5-10.1 Serum or plasma total bilirubin measurement (mass/volume) 0.4 mg/dL 0.1-1.0 Serum or plasma alkaline phosphatase measurement (enzymatic activity/volume) 78 U/L 40-136 Serum or plasma aspartate aminotransferase measurement (enzymatic activity/ volume) 18 U/L 5-34 Serum or plasma alanine aminotransferase measurement (enzymatic activity/volume ) 14 U/L 0-55 Serum or plasma protein measurement (mass/volume) 7.1 g/dL 6.4-8.2 Serum or plasma albumin measurement (mass/volume) 4.3 g/dL 3.2-4.5 THYROID STIMULATING HORMONE - 12/03/16 15:13 THYROID STIMULATING HORMONE 12.44 u[iU]/mL 0.35-4.94 Complete blood count (CBC) with automated white blood cell (WBC) differential - 12/04/16 21:45 Blood leukocytes automated count (number/volume) 7.1 10*3/ uL 4.3-11.0 Blood erythrocytes automated count (number/volume) 3.71 10*6 /uL 4.35-5.85 Venous blood hemoglobin measurement (mass/volume) 10.9 g/dL 11.5-16.0 Blood hematocrit (volume fraction) 34 % 35-52 Automated erythrocyte mean corpuscular volume 90 [foz_us] 80-99 Automated erythrocyte mean corpuscular hemoglobin (mass per erythrocyte) 29 pg 25-34 Automated erythrocyte mean corpuscular hemoglobin concentration measurement ( mass/volume) 33 g/dL 32-36 Automated erythrocyte distribution width ratio 13.8 % 10.0-14.5 Automated blood platelet count (count/volume) 217 10*3/uL 130-400 Automated blood platelet mean volume measurement 11.1 [foz_ us] 7.4-10.4 Automated blood neutrophils/100 leukocytes 74 % 42-75 Automated blood lymphocytes/100 leukocytes 13 % 12-44 Blood monocytes/100 leukocytes 9 % 0-12 Automated blood eosinophils/100 leukocytes 4 % 0-10 Automated blood basophils/100 leukocytes 0 % 0-10 Blood neutrophils automated count (number/volume) 5.2 10*3 1.8-7.8 Blood lymphocytes automated count (number/volume) 0.9 10*3 1.0-4.0 Blood monocytes automated count (number/volume) 0.7 10*3 0.0-1.0 Automated eosinophil count 0.3 10*3/uL 0.0-0.3 Automated blood basophil count (count/volume) 0.0 10*3/uL 0.0-0.1 PT panel in platelet poor plasma by coagulation assay - 12/04/16 21:45 Prothrombin time (PT) in platelet poor plasma by coagulation assay 16.2 s 12.2-14.7 INR in platelet poor plasma or blood by coagulation assay 1.3 0.8-1.4 Activated partial thromboplastin time (aPTT) in platelet poor plasma bycoagulation assay - 12/04/16 21:45 Activated partial thromboplastin time (aPTT) in platelet poor plasma bycoagulation assay 23 s 24-35 Comprehensive metabolic panel - 12/04/16 21:45 Serum or plasma sodium measurement (moles/volume) 136 mmol/ L 135-145 Serum or plasma potassium measurement (moles/volume) 4.0 mmol/L 3.6-5.0 Serum or plasma chloride measurement (moles/volume) 102 mmol /L 98-107 Carbon dioxide 27 mmol/L 21-32 Serum or plasma anion gap determination (moles/volume) 7 mmol/L 5-14 Serum or plasma urea nitrogen measurement (mass/volume) 16 mg/dL 7-18 Serum or plasma creatinine measurement (mass/volume) 0.97 mg /dL 0.60-1.30 Serum or plasma urea nitrogen/creatinine mass ratio 16 NRG Serum or plasma creatinine measurement with calculation of estimated glomerular filtration rate 55 NRG Serum or plasma glucose measurement (mass/volume) 137 mg/dL 70-105 Serum or plasma calcium measurement (mass/volume) 9.1 mg/dL 8.5-10.1 Serum or plasma total bilirubin measurement (mass/volume) 0.4 mg/dL 0.1-1.0 Serum or plasma alkaline phosphatase measurement (enzymatic activity/volume) 70 U/L 40-136 Serum or plasma aspartate aminotransferase measurement (enzymatic activity/ volume) 18 U/L 5-34 Serum or plasma alanine aminotransferase measurement (enzymatic activity/volume ) 14 U/L 0-55 Serum or plasma protein measurement (mass/volume) 6.3 g/dL 6.4-8.2 Serum or plasma albumin measurement (mass/volume) 3.9 g/dL 3.2-4.5 Magnesium - 12/04/16 21:45 Magnesium 2.2 mg/dL 1.8-2.4 Serum or plasma troponin i.cardiac measurement (mass/volume) - 12/04/16 21:45 Serum or plasma troponin i.cardiac measurement (mass/volume) < ng/mL <0.30 Myoglobin, serum - 12/04/16 21:45 Myoglobin, serum 28.6 ng/mL 10.0-92.0 Serum or plasma amylase measurement (enzymatic activity/volume) - 12/04/16 21: 45 Serum or plasma amylase measurement (enzymatic activity/volume) 46 U/L 25-125 Lipase - 12/04/16 21:45 Lipase 24 U/L 8-78 Serum or plasma lithium measurement (moles/volume) - 12/04/16 21:45 BNP level 228.8 pg/mL <100.0 Total triiodothyronine (T3) measurement - 12/04/16 21:45 Total triiodothyronine (T3) measurement 0.9 % 0.6-1.8 Thyroxine (T4) measurement - 12/04/16 21:45 T4 (thyroxine) 6.2 % 5.5-12.0 Complete blood count (CBC) with automated white blood cell (WBC) differential - 12/05/16 03:45 Blood leukocytes automated count (number/volume) 6.5 10*3/ uL 4.3-11.0 Blood erythrocytes automated count (number/volume) 3.45 10*6 /uL 4.35-5.85 Venous blood hemoglobin measurement (mass/volume) 10.1 g/dL 11.5-16.0 Blood hematocrit (volume fraction) 31 % 35-52 Automated erythrocyte mean corpuscular volume 90 [foz_us] 80-99 Automated erythrocyte mean corpuscular hemoglobin (mass per erythrocyte) 29 pg 25-34 Automated erythrocyte mean corpuscular hemoglobin concentration measurement ( mass/volume) 33 g/dL 32-36 Automated erythrocyte distribution width ratio 13.8 % 10.0-14.5 Automated blood platelet count (count/volume) 206 10*3/uL 130-400 Automated blood platelet mean volume measurement 11.3 [foz_ us] 7.4-10.4 Automated blood neutrophils/100 leukocytes 70 % 42-75 Automated blood lymphocytes/100 leukocytes 14 % 12-44 Blood monocytes/100 leukocytes 11 % 0-12 Automated blood eosinophils/100 leukocytes 4 % 0-10 Automated blood basophils/100 leukocytes 1 % 0-10 Blood neutrophils automated count (number/volume) 4.5 10*3 1.8-7.8 Blood lymphocytes automated count (number/volume) 0.9 10*3 1.0-4.0 Blood monocytes automated count (number/volume) 0.7 10*3 0.0-1.0 Automated eosinophil count 0.3 10*3/uL 0.0-0.3 Automated blood basophil count (count/volume) 0.0 10*3/uL 0.0-0.1 Comprehensive metabolic panel - 12/05/16 03:45 Serum or plasma sodium measurement (moles/volume) 138 mmol/ L 135-145 Serum or plasma potassium measurement (moles/volume) 4.1 mmol/L 3.6-5.0 Serum or plasma chloride measurement (moles/volume) 103 mmol /L 98-107 Carbon dioxide 27 mmol/L 21-32 Serum or plasma anion gap determination (moles/volume) 8 mmol/L 5-14 Serum or plasma urea nitrogen measurement (mass/volume) 14 mg/dL 7-18 Serum or plasma creatinine measurement (mass/volume) 0.88 mg /dL 0.60-1.30 Serum or plasma urea nitrogen/creatinine mass ratio 16 NRG Serum or plasma creatinine measurement with calculation of estimated glomerular filtration rate > NRG Serum or plasma glucose measurement (mass/volume) 97 mg/dL 70-105 Serum or plasma calcium measurement (mass/volume) 8.7 mg/dL 8.5-10.1 Serum or plasma total bilirubin measurement (mass/volume) 0.5 mg/dL 0.1-1.0 Serum or plasma alkaline phosphatase measurement (enzymatic activity/volume) 60 U/L 40-136 Serum or plasma aspartate aminotransferase measurement (enzymatic activity/ volume) 14 U/L 5-34 Serum or plasma alanine aminotransferase measurement (enzymatic activity/volume ) 13 U/L 0-55 Serum or plasma protein measurement (mass/volume) 5.6 g/dL 6.4-8.2 Serum or plasma albumin measurement (mass/volume) 3.6 g/dL 3.2-4.5 Serum or plasma troponin i.cardiac measurement (mass/volume) - 12/05/16 03:45 Serum or plasma troponin i.cardiac measurement (mass/volume) < ng/mL <0.30 Myoglobin, serum - 12/05/16 03:45 Myoglobin, serum 31.7 ng/mL 10.0-92.0 Lipid 1996 panel - 12/05/16 03:45 Serum or plasma triglyceride measurement (mass/volume) 77 mg /dL <150 Serum or plasma cholesterol measurement (mass/volume) 215 mg /dL < 200 Serum or plasma cholesterol in HDL measurement (mass/volume) 52 mg/dL 40-60 Cholesterol in LDL [mass/volume] in serum or plasma by direct assay 152 mg/dL 1-129 Serum or plasma cholesterol in VLDL measurement (mass/volume) 15 mg/dL 5-40 Encounters ACCT No. Visit Date/Time Discharge Status Pt. Type Provider Facility Loc./Unit Complaint [id number] 12/04/2016 21:41:00 2016 17:16:00 DIS Inpatient EVGENY FINLEY MD [facility] 4TH CHEST PAIN [id number] 06/25/2016 21:04:00 2015 11:10:00 DIS Inpatient CRISTY MONROE MD [facility] 4TH LLL PNEUMONIA [id number] 04/16/2016 09:10:00 2015 12:06:00 DIS Emergency PEDRO NAIR DO [facility] ER CHEST/BACK/ABD PAIN V/D [id number] 11/28/2015 17:19:00 2015 10:25:00 DIS Inpatient EVGENY FINLEY MD [facility] 4TH CHEST PAIN [id number] 09/01/2015 12:19:00 2014 23:59:59 CLS Outpatient BRANDIE HAMMER MD [facility] LAB AF,APC,CAD [id number] 08/23/2015 14:50:00 2014 10:16:00 DIS Inpatient BRANDIE HAMMER MD [facility] ICU A FIB,CAD,DSYPNEA [id number] 08/22/2015 15:33:00 2014 23:59:59 CLS Outpatient FARSHAD MARQUEZ [facility] RAD AF,APC,CAD,HEART FAILURE [id number] 08/16/2015 11:54:00 2014 23:59:59 CLS Outpatient FARSHAD MARQUEZ [facility] RAD AF,APC,CAD,HEART FAILURE [id number] 08/10/2015 06:54:00 2014 12:00:00 DIS Outpatient BRANDIE HAMMER MD [facility] CATH SSS,CP,CAD,PAF,SOB [id number] 12/23/2014 14:22:00 2014 23:59:59 CLS Outpatient RAFAL MORE Zaki OCONNOR [facility] RAD CYST [id number] 12/16/2014 15:06:00 2014 23:59:59 CLS Outpatient BRANDIE HAMMER MD [facility] CARD AFIB,APC,CHEST PAIN, HEART FAILURE [id number] 12/12/2014 13:28:00 2014 18:38:00 DIS Emergency EVGENY FINLEY MD [facility] ER CHEST PAIN [id number] 11/08/2014 10:38:00 2013 23:59:59 CLS Outpatient CHIQUITA PARK MD [facility] RAD SCREENING [id number] 11/05/2013 08:48:00 2012 23:59:59 CLS Outpatient CHIQUITA PARK MD [facility] RAD SCREENING [id number] 12/03/2016 14:59:00 ACT Outpatient BRANDIE HAMMER MD [facility] LAB AF,CAD,HEART FAILURE [id number] 03/13/2016 10:45:00 ACT Outpatient FARSHAD ROMAN [facility] CARD AF,APC,CAD,HEART FAILURE [id number] 03/06/2016 12:12:00 ACT Outpatient MIRANDA MCGUIRE DO [facility] RAD DYSPNEA [id number] 07/13/2015 10:51:00 Document Registration [id number] 12/29/2014 12:27:00 Document Registration [id number] 09/22/2012 10:52:00 Document Registration
== END 2016-12-05 17:16 | disposition home or self-care (01) ==
LOC: EDUNIT# 21:38 → ER 21:40 → 4TH 21:41 → UNDOADMOB 23:30 → 4TH 12-05 00:39 → UNDOADMOB 12-05 00:39 → 4TH 12-05 11:45 → UNDODISOB 12-05 17:16
PROVIDERS: ADMIT Internal Medicine; ATTEND Internal Medicine
DX: R07.89 Other chest pain (principal); J90 Pleural effusion, not elsewhere classified; I10 Essential (primary) hypertension; E78.5 Hyperlipidemia, unspecified; I25.10 Atherosclerotic heart disease of native coronary artery without angina pectoris; I48.0 Paroxysmal atrial fibrillation; I47.2 Ventricular tachycardia; I65.23 Occlusion and stenosis of bilateral carotid arteries; M54.9 Dorsalgia, unspecified; D64.9 Anemia, unspecified; Z95.0 Presence of cardiac pacemaker; Z85.3 Personal history of malignant neoplasm of breast; Z90.11 Acquired absence of right breast and nipple
CPT/HCPCS: 36415; 71010; 78452; 80053; 80061; 82150; 83690; 83735; 83874; 83880; 84436; 84480; 84484; 85025; 85610; 85730; 93005; 93017; 93041; 96374; G0378

== ENCOUNTER → 2018-01-23 | Outpatient (CLI) | payer MEDICARE ==
[~2018-01-23] MED LIST changes: +AMIO200T2 PO; +LEVO25TA2 PO; +METO50TA15 PO
[2018-01-23 08:51] LABS: BILIRUBIN,TOTAL 0.8 MG/DL (0.1-1.0); CALCIUM 9.2 MG/DL (8.5-10.1); CREATININE SERUM 1.05 MG/DL (0.60-1.30); POTASSIUM 4.3 MMOL/L (3.6-5.0); TOTAL PROTEIN 6.5 GM/DL (6.4-8.2)
--- NOTE | 2018-01-23 09:22 | Diagnostic Imaging Report ---
PA and lateral chest at 854 hours. INDICATION: Chest pain. FINDINGS: The borderline cardiomegaly noted on the prior exam of 12/04/2016 is again evident and no different. The left-sided pacemaker seen previously is unchanged in position. The leads seem to be intact. The lungs are clear. There is no sign of failure, pneumonia or pleural effusion. As noted on the prior exam, there is blunting of the left costophrenic angle. This may be secondary to pleural thickening. Surgical clips are again seen overlying the right lung base in the right axilla. The mediastinum is not widened. The osseous structures are intact. IMPRESSION: 1. There is borderline cardiomegaly, but there is no sign of acute cardiopulmonary abnormality. The left-sided pacemaker seems to be in good position and the pacer leads are intact. 2. There is persistent blunting of the left costophrenic angle. This may be secondary to pleural thickening as opposed to a small effusion. Dictated by: Dictated on workstation # [id number]
== END ==
LOC: RAD 08:12
PROVIDERS: ATTEND Physician Assistant
DX: I48.0 Paroxysmal atrial fibrillation (principal); I25.10 Atherosclerotic heart disease of native coronary artery without angina pectoris; I50.22 Chronic systolic (congestive) heart failure; Z95.0 Presence of cardiac pacemaker
CPT/HCPCS: 36415; 71046; 80053; 80061

== ENCOUNTER 2018-02-09 13:47 | Emergency (ER) | payer MEDICARE ==
[~2018-02-09] VITALS: Ht 152.4 cm; Wt 56.7 kg
--- OUTSIDE RECORDS SUMMARY | 2018-02-09 13:54 | XMS REPORT | Continuity of Care Document ---
Author Author [facility] Organization [facility] Address Unknown Phone Unavailable Allergies Active Description Code Type Severity Reaction Onset Reported/Identified Relationship to Patient Clinical Status Yes No Known Drug Allergies [id number] Drug Allergy Unknown N/A 12/12/2014 Medications There is no data. Problems Date Dx Coded Attending Type Code [...] 12/16/2014 CHIQUITA PARK MD Ot V76.11 12/16/2014 VIVIAN SOFIA, CHIQUITA Prieto Ot V76.12 12/23/2014 Ot V10.3 12/23/2014 Ot V76.11 12/23/2014 VIVIAN SOFIA, CHIQUITA Prieto Ot V10.3 12/23/2014 VIVIAN SOFIA, CHIQUITA Prieto Ot V76.11 12/23/2014 CHIQUITA PARK MD Ot V76.12 12/23/2014 BRANDIE HAMMER MD Ot 427.31 12/23/2014 BRANDIE HAMMER MD Ot 427.61 12/23/2014 BRANDIE HAMMER MD Ot 428.9 12/23/2014 BRANDIE HAMMER MD Ot 786.50 12/24/2014 RAFAL MORE APRN Ot 593.2 12/30/2014 Ot 300.00 ANXIETY STATE NOS 12/30/2014 Ot 414.[address] [place] CORON 12/30/2014 Ot 427.0 [place]OX ATRIAL TACHYCARDIA 12/30/2014 Ot 724.5 BACKACHE NOS 12/30/2014 Ot 786.09 RESPIRATORY ABNORM NEC 12/30/2014 Ot 786.50 CHEST PAIN NOS 12/30/2014 Ot V10.3 HX OF BREAST MALIGNANCY 12/30/2014 Ot V58.69 OTH MED,LT, CURRENT USE 07/29/2015 Ot 414.01 07/29/2015 Ot 427.0 [...] MD Ot 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 08/12/2015 BRANDIE HAMMER MD Ot I48.91 UNSPECIFIED ATRIAL FIBRILLATION 08/12/2015 BRANDIE HAMMER MD Ot I49.5 SICK SINUS SYNDROME 08/12/2015 BRANDIE HAMMER MD Ot Z79.899 OTHER [employer] B[employer] (CURRENT) DRUG THERAPY 08/12/2015 BRANDIE HAMMER MD [...] MD Ot 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 08/25/2015 BRANDIE HAMMER MD Ot I48.0 [...] I50.22 09/13/2015 FARSHAD MARQUEZ Ot I25.10 09/13/2015 TOMAS HILL, FARSHAD Kaiser Ot I48.0 09/13/2015 CORDON-FREDRICK PA, FARSHAD K Ot I49.1 09/13/2015 [facility]ICK PA, FARSHAD K Ot I50.22 09/15/2015 [facility] PA, FARSHAD K Ot I25.10 09/15/2015 [facility]ICK PA, FARSHAD K Ot I48.0 09/15/2015 [facility] PA, FARSHAD K Ot I49.1 09/15/2015 C[place]FR[place]RICK PA, FARSHAD K Ot I50.22 09/15/2015 C[place]ON-FREDRICK PA, FARSHAD K Ot R06.02 09/15/2015 CORDON-FREDRICK PA, FARSHAD K Ot R07.89 09/22/2015 CORDON-FREDRICK PA, FARSHAD Kaiser Ot I25.10 09/22/2015 [facility]-FREDRICK PA, FARSHAD K Ot I48.0 09/22/2015 [facility], FARSHAD K Ot I49.1 09/22/2015 [facility] Ot I50.22 09/22/2015 [place]FR[place]ICK PA, FARSHAD K Ot R06.02 09/22/2015 [facility] PA, FARSHAD K Ot R07.89 09/27/2015 HARMAN SOFIA, BRANDIE Aldana [...] FINLEY MD Ot M54.9 DORSALGIA, UNSPECIFIED 11/30/2015 VEGENY FINLEY MD Ot R07.89 OTHER CHEST PAIN 11/30/2015 EVGENY FINLEY MD Ot R10.31 RIGHT LOWER QUADRANT PAIN 11/30/2015 EVGENY FINLEY MD Ot Z85.3 PERSONAL HISTORY OF MALIGNANT NEOPLASM O 11/30/2015 MALIA SOFIA, EVGENY Kaiser Ot Z95.0 PRESENCE OF CARDIAC PACEMAKER 03/07/2016 MAYNORMIRANDA JORGENSEN DO Ot J94.2 HEMOTHORAX 03/07/2016 MAYNOR MCKENNA MIRANDA James Ot R06.02 SHORTNESS OF BREATH 03/13/2016 Ot V10.3 HX OF BREAST MALIGNANCY 03/13/2016 Ot V76.11 SCRN MAMMO- HIGH RISK PT, MALIGNANT NEOPL 03/13/2016 CHIQUITA PARK MD Ot V10.3 HX OF BREAST MALIGNANCY 03/13/2016 CHIQUITA PARK MD Ot V76.11 SCRN MAMMO-HIGH RISK PT, MALIGNANT NEOPL 03/13/2016 CHIQUITA PRAK MD Ot V76.12 OTH SCREEN MAMMO-MALIGN NEOPLASM OF LULU 03/13/2016 BRANDIE HAMMER MD Ot 427.31 ATRIAL FIBRILLATION 03/13/2016 BRANDIE HAMMER MD Ot 427.61 ATRIAL PREMATURE BEATS 03/13/2016 BRANDIE HAMMER MD Ot 428.9 HEART FAILURE NOS 03/13/2016 BRANDIE HAMMER MD Ot 786.50 CHEST PAIN NOS 03/13/2016 RAFAL MORE N CARD PROCESSING CLERK Ot 593.2 CYST OF KIDNEY, ACQUIRED 03/13/2016 Ot 414.[address] 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 04/11/2016 ADAFREDRICK HILL FARSHAD K Ot I48.0 PAROXYSMAL ATRIAL FIBRILLATION 04/11/2016 CORDON-FREDRICK HILL FARSHAD Awilda Ot I49.1 ATRIAL PREMATURE DEPOLARIZATION 04/11/2016 TOMAS SERGIO FARSHAD Kaiser Ot I50.22 CHRONIC SYSTOLIC (CONGESTIVE) HEART FAIL 04/16/2016 Ot V10.3 HX OF BREAST MALIGNANCY 04/16/2016 Ot V76.11 SCRN MAMMO- HIGH RISK PT, MALIGNANT NEOPL 04/16/2016 VIVIAN SOFIA, CHIQUITA Prieto Ot V10.3 HX OF BREAST MALIGNANCY 04/16/2016 VIVIAN SOFIA, CHIQUITA Prieto Ot V76.11 SCRN MAMMO-HIGH RISK PT, MALIGNANT NEOPL 04/16/2016 VIVIAN SOFIA, CHIQUITA Prieto Ot V76.12 OTH SCREEN MAMMO-MALIGN NEOPLASM OF LULU 04/16/2016 BRANDIE HAMMER MD Ot 427.31 ATRIAL FIBRILLATION 04/16/2016 BRANDIE HAMMER MD Ot 427.61 ATRIAL PREMATURE BEATS 04/16/2016 BRANDIE HAMMER MD Ot 428.9 HEART FAILURE NOS 04/16/2016 BRANDIE HAMMER MD Ot 786.50 CHEST PAIN NOS 04/16/2016 RAFAL MORE CARD PROCESSING CLERK Ot 593.2 CYST OF KIDNEY, ACQUIRED 04/16/2016 Ot 414.01 COR[address]EROSIS [address] 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 04/16/2016 FARSHAD MARQUEZ Ot I48.0 PAROXYSMAL ATRIAL FIBRILLATION 04/16/2016 FARSHAD MARQUEZ Ot I49.1 ATRIAL PREMATURE DEPOLARIZATION 04/16/2016 FARSHAD MARQUEZ Ot I50.22 CHRONIC SYSTOLIC (CONGESTIVE) HEART FAIL 04/16/2016 TUNDE NAIR DOA Awilda Ot N28.1 CYST OF KIDNEY, ACQUIRED 04/16/2016 KOREY MCKENNA PEDRO Awilda Ot N39.0 URINARY TRACT INFECTION, SITE NOT SPECIF 04/16/2016 PEDRO NAIR DO Ot R07.89 OTHER CHEST PAIN 04/16/2016 TUNDE NAIR DOA Awilda Ot R31.2 OTHER MICROSCOPIC HEMATURIA 04/16/2016 TUNDE NAIR DOA Awilda Ot Z95.0 PRESENCE OF CARDIAC PACEMAKER 04/18/2016 TUNDE NAIR DOA Awilda Ot N28.1 CYST OF KIDNEY, ACQUIRED 04/18/2016 KOREY DO, PEDRO K Ot N39.0 URINARY TRACT INFECTION, SITE NOT SPECIF 04/18/2016 KOREY DO, PEDRO K Ot R07.89 OTHER CHEST PAIN 04/18/2016 KOREY DO, PEDRO K Ot R31.2 OTHER MICROSCOPIC HEMATURIA 04/18/2016 KOREY DO, PEDRO K Ot Z95.0 PRESENCE OF CARDIAC PACEMAKER 05/02/2016 KOREY DO, PEDRO K Ot N28.1 CYST OF KIDNEY, ACQUIRED 05/02/2016 KOREY DO, PEDRO K Ot N39.0 URINARY TRACT INFECTION, SITE NOT SPECIF 05/02/2016 KOREY DO, PEDRO K Ot R07.89 OTHER CHEST PAIN 05/02/2016 KOREY DO, PEDRO K Ot R31.2 OTHER MICROSCOPIC HEMATURIA 05/02/2016 KOREY DO, PEDRO K Ot Z95.0 PRESENCE OF CARDIAC PACEMAKER 06/27/2016 CRISTY MONROE MD Ot A41.9 SEPSIS, UNSPECIFIED ORGANISM 06/27/2016 CRISTY MONROE MD Ot B99.9 UNSPECIFIED INFECTIOUS DISEASE 06/27/2016 CRISTY MONROE MD Ot 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 06/27/2016 CRISTY MONROE MD Ot I48.0 PAROXYSMAL ATRIAL FIBRILLATION 06/27/2016 CRISTY MONROE MD Ot I50.9 HEART FAILURE, UNSPECIFIED 06/27/2016 CRISTY MONROE MD Ot J18.9 PNEUMONIA, UNSPECIFIED ORGANISM 06/27/2016 CRISTY MONROE MD Ot R04.2 HEMOPTYSIS 06/27/2016 CRISTY MONROE MD Ot R93.8 ABNORMAL FINDINGS ON DIAGNOSTIC IMAGING 06/27/2016 CRISTY MONROE MD Ot Z85.3 PERSONAL HISTORY OF MALIGNANT NEOPLASM O 06/27/2016 CRISTY MONROE MD Ot Z95.0 PRESENCE OF CARDIAC PACEMAKER 06/28/2016 CRISTY MONROE MD Ot A41.9 SEPSIS, UNSPECIFIED ORGANISM 06/28/2016 CRISTY MONROE MD Ot D64.9 ANEMIA, UNSPECIFIED 06/28/2016 CRISTY MONROE MD Ot 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 06/28/2016 CRISTY MONROE MD Ot I48.0 PAROXYSMAL ATRIAL FIBRILLATION 06/28/2016 CRISTY MONROE MD Ot I50.9 HEART FAILURE, UNSPECIFIED 06/28/2016 CRISTY MONROE MD Ot J18.9 PNEUMONIA, UNSPECIFIED ORGANISM 06/28/2016 CRISTY MONROE MD Ot K21.9 GASTRO-ESOPHAGEAL REFLUX DISEASE WITHOUT 06/28/2016 CRISTY MONROE MD Ot R04.2 HEMOPTYSIS 06/28/2016 CRISTY MONROE MD Ot R54 AGE-RELATED PHYSICAL DEBILITY 06/28/2016 CRISTY MONROE MD Ot R63.0 ANOREXIA 06/28/2016 CRISTY MONROE MD Ot R93.8 ABNORMAL FINDINGS ON DIAGNOSTIC IMAGING 06/28/2016 CRISTY MONROE MD Ot Z85.3 PERSONAL HISTORY OF MALIGNANT NEOPLASM O 06/28/2016 CRISTY MONROE MD Ot Z95.0 PRESENCE OF CARDIAC PACEMAKER 12/03/2016 Ot V10.3 HX OF BREAST MALIGNANCY 12/03/2016 Ot V76.11 SCRN MAMMO- HIGH RISK PT, MALIGNANT NEOPL 12/03/2016 CHIQUITA PARK [...] 786.50 CHEST PAIN NOS 12/03/2016 RAFAL MORE N CARD PROCESSING CLERK Ot 593.2 CYST OF KIDNEY, ACQUIRED 12/03/2016 Ot 414.01 [address]IS [address] 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 01/24/2018 TOMAS HILL FARSHAD K Ot I48.0 PAROXYSMAL ATRIAL FIBRILLATION 01/24/2018 TOMAS HILL FARSHAD K Ot I50.22 CHRONIC SYSTOLIC (CONGESTIVE) HEART FAIL 01/24/2018 TOMAS HILL FARSHAD K Ot Z95.0 PRESENCE OF CARDIAC PACEMAKER Procedures Code Description Performed By Performed On [id number] DRAINAGE OF LEFT PLEURA WITH DRAINAGE DE 08/24/2015 Results Test Result Range Complete blood count (CBC) with automated white blood cell (WBC) differential - 06/25/16 20:28 Blood leukocytes automated count (number/volume) 17.6 10*3/uL 4.3-11.0 Blood erythrocytes automated count (number/volume) 4.44 10*6/uL 4.35-5.85 Venous blood hemoglobin measurement (mass/volume) 12.9 [...] Automated blood platelet mean volume measurement 11.5 [foz_us] 7.4-10.4 Automated blood neutrophils/100 leukocytes 90 % [...] Serum or plasma sodium measurement (moles/volume) 136 mmol/L 135-145 Serum or plasma potassium measurement (moles/volume) 3.9 mmol/L 3.6-5.0 Serum or plasma chloride measurement (moles/volume) 99 mmol/L 98-107 Carbon dioxide 27 mmol/L 21-32 Serum or plasma anion gap determination (moles/volume) 10 mmol/L 5-14 Serum or plasma urea nitrogen measurement (mass/volume) 23 mg/dL 7-18 Serum or plasma creatinine measurement (mass/volume) 0.81 mg/dL 0.60-1.30 Serum or plasma urea nitrogen/creatinine mass [...] or plasma troponin i.cardiac measurement (mass/volume) < ng/ mL <0.30 Blood lactic acid measurement (moles/volume) - 06/25/16 21:11 Blood lactic acid measurement (moles/volume) 1.1 mmol/L 0.5-2.0 Bacterial blood culture - 06/25/16 21:11 Bacterial blood culture NG NRG Sputum Gram stain - 06/25/16 21:17 Bacterial sputum culture - 06/25/16 21:17 Bacterial blood culture - 06/25/16 21:23 Bacterial blood culture NG NRG Complete blood count (CBC) with automated white blood cell (WBC) differential - 06/26/16 05:23 Blood leukocytes automated count (number/volume) 17.1 10*3/uL 4.3-11.0 Blood erythrocytes automated count (number/volume) 3.74 10*6/uL 4.35-5.85 Venous blood hemoglobin measurement (mass/volume) 10.8 [...] Automated blood platelet mean volume measurement 11.3 [foz_us] 7.4-10.4 Automated blood neutrophils/100 leukocytes 90 % [...] 05:15 Blood leukocytes automated count (number/volume) 12.2 10*3/uL 4.3-11.0 Blood erythrocytes automated count (number/volume) 3.74 10*6/uL 4.35-5.85 Venous blood hemoglobin measurement (mass/volume) 10.9 [...] Automated blood platelet mean volume measurement 11.5 [foz_us] 7.4-10.4 Automated blood neutrophils/100 leukocytes 87 % [...] Serum or plasma sodium measurement (moles/volume) 139 mmol/L 135-145 Serum or plasma potassium measurement (moles/volume) 3.7 mmol/L 3.6-5.0 Serum or plasma chloride measurement (moles/volume) 104 mmol/L 98-107 Carbon dioxide 23 mmol/L 21-32 Serum or plasma anion gap determination (moles/volume) 12 mmol/L 5-14 Serum or plasma urea nitrogen measurement (mass/volume) 10 mg/dL 7-18 Serum or plasma creatinine measurement (mass/volume) 0.68 mg/dL 0.60-1.30 Serum or plasma urea nitrogen/creatinine mass ratio 15 NRG Serum or plasma creatinine measurement with calculation of estimated glomerular filtration rate > NRG Serum or plasma glucose measurement (mass/volume) 103 mg/dL 70-105 Serum or plasma calcium measurement (mass/volume) 9.0 mg/dL 8.5-10.1 Complete blood count (CBC) with automated white blood cell (WBC) differential - 06/28/16 04:27 Blood leukocytes automated count (number/volume) 10.3 10*3/uL 4.3-11.0 Blood erythrocytes automated count (number/volume) 3.66 10*6/uL 4.35-5.85 Venous blood hemoglobin measurement (mass/volume) 10.5 [...] Automated blood platelet mean volume measurement 11.8 [foz_us] 7.4-10.4 Automated blood neutrophils/100 leukocytes 86 % [...] Serum or plasma sodium measurement (moles/volume) 139 mmol/L 135-145 Serum or plasma potassium measurement (moles/volume) 3.8 mmol/L 3.6-5.0 Serum or plasma chloride measurement (moles/volume) 105 mmol/L 98-107 Carbon dioxide 25 mmol/L 21-32 Serum or plasma anion gap determination (moles/volume) 9 mmol/L 5-14 Serum or plasma urea nitrogen measurement (mass/volume) 16 mg/dL 7-18 Serum or plasma creatinine measurement (mass/volume) 0.69 mg/dL 0.60-1.30 Serum or plasma urea nitrogen/creatinine mass [...] Serum or plasma sodium measurement (moles/volume) 138 mmol/L 135-145 Serum or plasma potassium measurement (moles/volume) 3.8 mmol/L 3.6-5.0 Serum or plasma chloride measurement (moles/volume) 101 mmol/L 98-107 Carbon dioxide 28 mmol/L 21-32 Serum or plasma anion gap determination (moles/volume) 9 mmol/L 5-14 Serum or plasma urea nitrogen measurement (mass/volume) 13 mg/dL 7-18 Serum or plasma creatinine measurement (mass/volume) 0.94 mg/dL 0.60-1.30 Serum or plasma urea nitrogen/creatinine mass [...] 21:45 Blood leukocytes automated count (number/volume) 7.1 10*3/uL 4.3-11.0 Blood erythrocytes automated count (number/volume) 3.71 10*6/uL 4.35-5.85 Venous blood hemoglobin measurement (mass/volume) 10.9 [...] Automated blood platelet mean volume measurement 11.1 [foz_us] 7.4-10.4 Automated blood neutrophils/100 leukocytes 74 % [...] Serum or plasma sodium measurement (moles/volume) 136 mmol/L 135-145 Serum or plasma potassium measurement (moles/volume) 4.0 mmol/L 3.6-5.0 Serum or plasma chloride measurement (moles/volume) 102 mmol/L 98-107 Carbon dioxide 27 mmol/L 21-32 Serum or plasma anion gap determination (moles/volume) 7 mmol/L 5-14 Serum or plasma urea nitrogen measurement (mass/volume) 16 mg/dL 7-18 Serum or plasma creatinine measurement (mass/volume) 0.97 mg/dL 0.60-1.30 Serum or plasma urea nitrogen/creatinine mass [...] or plasma troponin i.cardiac measurement (mass/volume) < ng/ mL <0.30 Myoglobin, serum - 12/04/16 21:45 Myoglobin, serum 28.6 ng/mL 10.0-92.0 Serum or plasma amylase measurement (enzymatic activity/volume) - 12/04/16 21: 45 Serum or plasma amylase measurement (enzymatic activity/volume) 46 U /L 25-125 Lipase - 12/04/16 21:45 Lipase 24 [...] 03:45 Blood leukocytes automated count (number/volume) 6.5 10*3/uL 4.3-11.0 Blood erythrocytes automated count (number/volume) 3.45 10*6/uL 4.35-5.85 Venous blood hemoglobin measurement (mass/volume) 10.1 [...] Automated blood platelet mean volume measurement 11.3 [foz_us] 7.4-10.4 Automated blood neutrophils/100 leukocytes 70 % [...] Serum or plasma sodium measurement (moles/volume) 138 mmol/L 135-145 Serum or plasma potassium measurement (moles/volume) 4.1 mmol/L 3.6-5.0 Serum or plasma chloride measurement (moles/volume) 103 mmol/L 98-107 Carbon dioxide 27 mmol/L 21-32 Serum or plasma anion gap determination (moles/volume) 8 mmol/L 5-14 Serum or plasma urea nitrogen measurement (mass/volume) 14 mg/dL 7-18 Serum or plasma creatinine measurement (mass/volume) 0.88 mg/dL 0.60-1.30 Serum or plasma urea nitrogen/creatinine mass [...] or plasma troponin i.cardiac measurement (mass/volume) < ng/ mL <0.30 Myoglobin, serum - 12/05/16 03:45 Myoglobin, serum 31.7 ng/mL 10.0-92.0 Lipid 1996 panel - 12/05/16 03:45 Serum or plasma triglyceride measurement (mass/volume) 77 mg/dL <150 Serum or plasma cholesterol measurement (mass/volume) 215 mg/dL < 200 Serum or plasma cholesterol in HDL measurement (mass/volume) 52 mg/ dL 40-60 Cholesterol in LDL [mass/volume] in serum or plasma by direct assay 152 mg/dL 1-129 Serum or plasma cholesterol in VLDL measurement (mass/volume) 15 mg/ dL 5-40 Encounters ACCT No. Visit Date/Time Discharge Status Pt. Type Provider Facility Loc./Unit Complaint [id number] 01/23/2018 08:12:00 01/23/2018 23:59:59 CLS Outpatient FARSHAD MARQUEZ [facility] RAD I48.0 [id number] 12/04/2016 21:41:00 12/05/2016 17:16:00 DIS Inpatient EVGENY FINLEY MD [facility] 4TH CHEST PAIN [id number] 12/03/2016 14:59:00 12/03/2016 23:59:59 CLS Outpatient BRANDIE HAMMER MD [facility] LAB AF,CAD,HEART FAILURE [id number] 06/25/2016 21:04:00 06/28/2016 11:10:00 DIS Inpatient CRISTY MONROE MD [facility] 4TH LLL PNEUMONIA [id number] 04/16/2016 09:10:00 04/16/2016 12:06:00 DIS Emergency PEDRO NAIR DO [facility] ER CHEST/BACK/ABD PAIN V/D [id number] 03/13/2016 10:45:00 03/13/2016 23:59:59 CLS Outpatient FARSHAD MARQUEZ [facility] CARD AF,APC,CAD, HEART FAILURE [id number] 03/06/2016 12:12:00 03/06/2016 23:59:59 CLS Outpatient MIRANDA MCGUIRE DO [facility] RAD DYSPNEA [id number] 11/28/2015 17:19:00 11/30/2015 10:25:00 DIS Inpatient EVGENY FINLEY MD [facility] 4TH CHEST PAIN [id number] 09/01/2015 12:19:00 09/01/2015 23:59:59 CLS Outpatient BRANDIE HAMMER MD [facility] LAB AF,APC,CAD [id number] 08/23/2015 14:50:00 08/25/2015 10:16:00 DIS Inpatient BRANDIE HAMMER MD [facility] ICU A FIB,CAD,DSYPNEA [id number] 08/22/2015 15:33:00 08/22/2015 23:59:59 CLS Outpatient FARSHAD MARQUEZ [facility] RAD AF,APC,CAD, HEART FAILURE [id number] 08/16/2015 11:54:00 08/16/2015 23:59:59 CLS Outpatient FARSHAD MARQUEZ [facility] RAD AF,APC,CAD, HEART FAILURE [id number] 08/10/2015 06:54:00 08/12/2015 12:00:00 DIS Outpatient BRANDIE HAMMER MD [facility] CATH SSS,CP,CAD,PAF,SOB [id number] 12/23/2014 14:22:00 12/23/2014 23:59:59 CLS Outpatient RAFAL MORE APRN [facility] RAD CYST [id number] 12/16/2014 15:06:00 12/16/2014 23:59:59 CLS Outpatient BRANDIE HAMMER MD [facility] CARD AFIB,APC,CHEST PAIN, HEART FAILURE [id number] 12/12/2014 13:28:00 12/12/2014 18:38:00 DIS Emergency MALIA SOFIA, EVGENY [facility] ER CHEST PAIN [id number] 11/08/2014 10:38:00 11/08/2014 23:59:59 CLS Outpatient CHIQUITA PARK MD [facility] RAD SCREENING [id number] 11/05/2013 08:48:00 11/05/2013 23:59:59 CLS Outpatient CHIQUITA PARK MD [facility] RAD SCREENING [id number] 07/13/2015 10:51:00 Document Registration [id number] 12/29/2014 12:27:00 Document Registration [id number] 09/22/2012 10:52:00 Document Registration
[2018-02-09] MEDS ORDERED: TETANUS,DIPTH,PERTUSS P/F (BOOSTRIX) 0.5 ML VIAL IM STA (14:14)
--- NOTE | 2018-02-09 14:19 | ED Integumentary General ---
General Chief Complaint: Laceration Stated Complaint: LACERATION L THUMB,STILL BLEEDING,ON BLOOD THINNER Nursing Triage Note: Patient advises at approximately 0830 she was trying to cut and orange and cut her left thumb. She is on blood thinners and has been unable to get the bleeding to stop. Source: patient, family Exam Limitations: no limitations History of Present Illness Date Seen by Provider: Feb 09, 2018 Time Seen by Provider: 14:00 Initial Comments 82 yo female patient presents to the ED with c/o cutting her finger at 0830 this AM while cutting an orange. Reports taking xarelto and is unable to get the bleeding to stop. Location Injury Occurred: home Timing/Duration: this morning Location: extremities (left thumb) Modifying Factors: worse with other (unable to stope) Allergies and Home Medications Allergies Coded Allergies: No Known Drug Allergies (Unverified , 12/12/14) Home Medications Levothyroxine Sodium 25 Mcg Tablet, 25 MCG PO DAILY Prescribed by: BRANDIE HAMMER on 12/05/16 1711 Metoprolol Tartrate 50 Mg Tablet, 50 MG PO BID, (Reported) Rivaroxaban 20 Mg Tablet, 20 MG PO DAILY, (Reported) Timolol 5 Ml Drops, 1 DROP OU BID, (Reported) 0.5% Patient Home Medication List Home Medication List Reviewed: Yes Constitutional: no symptoms reported Musculoskeletal: no symptoms reported Skin: see HPI Psychiatric/Neurological: Denies Numbness, Denies Paresthesia, Denies Tingling , Denies Weakness All Other Systems Reviewed Negative Unless Noted: Yes (Negative excepted noted.) Past Lhdgigh-Quctca-Fgofim Hx Patient Social History Alcohol Use: Denies Use Recreational Drug Use: No Smoking Status: Never a Smoker Recent Foreign Travel: No Contact w/Someone Who Travel: No Recent Infectious Disease Expo: No Recent Hopitalizations: Yes Physical Abuse: No Sexual Abuse: No Immunizations Up To Date Tetanus Booster (TDap): Unknown Date of Pneumonia Vaccine: Aug 05, 2016 Seasonal Allergies Seasonal Allergies: No Surgeries History of Surgeries: Yes (RT MASTECTOMY,CATARACTS SX) Surgeries: Appendectomy, Breast, Gallbladder, Hysterectomy, Oophorectomy, Pacemaker Respiratory History of Respiratory Disorde: No Currently Using CPAP: No Cardiovascular History of Cardiac Disorders: Yes (PACEMAKER, HEART FAILURE) Cardiac Disorders: Atrial Fibrillation, Coronary Artery Disease, Heart Murmur Neurological History of Neurological Disord: No Reproductive System Hx Reproductive Disorders: No SENIOR PRINCIPAL ARCHITECT History: Hysterectomy Genitourinary Genitourinary Disorders: UTI-Chronic Gastrointestinal History of Gastrointestinal Di: Yes (bowel impaction in december) Musculoskeletal History of Musculoskeletal Dis: Yes (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) Musculoskeletal Disorders: Arthritis Endocrine History of Endocrine Disorders: No HEENT HEENT Disorders: Glaucoma Hearing Impairment: Denies Cancer History of Cancer: Yes (R MASTECTOMY) Cancer: Breast Psychosocial History of Psychiatric Problem: No Suicide Risk Score: 0 Integumentary History of Skin or Integumenta: No Blood Transfusions History of Blood Disorders: No Adverse Reaction to a Blood Tr: No Reviewed Nursing Assessment Reviewed/Agree w Nursing PMH: Yes Family Medical History Significant Family History: Heart Disease, Cancer Family Medial History: Colon cancer G8 BROTHER Completed stroke 19 MOTHER ("Mother had several strokes") FH: leukemia 19 FATHER FHx: heart disease 19 FATHER 19 MOTHER G8 BROTHER Physical Exam Vital Signs Vital Signs - First Documented 02/09/18 14:05 Temp 97.4 Pulse 86 Resp 14 B/P (MAP) 138/68 (91) Pulse Ox 98 O2 Delivery Room Air Capillary Refill : Less Than 3 Seconds General Appearance: WD/WN, no apparent distress Cardiovascular: normal peripheral pulses Extremities: normal range of motion, normal capillary refill, other (2 cm superficial laceration of the distal left thumb with active bleeding. ) Neurologic/Psychiatric: no motor/sensory deficits, alert, normal mood/affect, oriented x 3 Skin: normal color, warm/dry, other (2 cm superficial laceration of the distal left thumb with active bleeding. ) Laceration Repair : Wound Location: Other (left distal thumb) Wound Length (cm): 2 Wound's Depth, Shape: superficial, linear Wound Explored: clean Betadine Prep?: No (wound scrubbed with chlorhexidine and sterile salin) Other Closure Supply: Wound Adhesive Sterile Dressing Applied?: Yes Progress finger tourniquet placed on the finger for 5 minutes total. hemostasis obtained with Dermabond. Tourniquet removed. Capillary refill <3 seconds. blood loss minimal. Patient tolerate the procedure well. Progress/Results/Core Measures Results/Orders My Orders Orders - YOANDY VASQUEZ Pertuss(Acell),Tet Adult (Boostrix (02/09/18 14:14) Vital Signs/I&O Vital Sign - Last 12Hours 02/09/18 02/09/18 14:05 14:56 Temp 97.4 97.4 Pulse 86 86 Resp 14 14 B/P (MAP) 138/68 (91) 138/68 (91) Pulse Ox 98 98 O2 Delivery Room Air Blood Pressure Mean: 91 Departure Communication (Admissions) Progress Notes baseball splint placed on the left thumb. no further bleeding noted. Impression Impression: Primary Impression: Laceration of thumb without damage to nail Additional Impression: Anticoagulated Disposition: 01 HOME, SELF-CARE Condition: Improved Departure-Patient Inst. Decision time for Depature: 14:42 Referrals: BENITEZ ODONNELL MD (PCP/Family) Primary Care Physician Patient Instructions: Laceration Repair With Glue (DC) Add. Discharge Instructions: All discharge instructions reviewed with patient and/or family. Voiced understanding. Continue usual medications. Elevate the left hand above the level of the heart. Ice pack intermittently throughout the day. Remove the gauze in three days. Shower with antibacterial soap. Use the finger splint x 7 days. Return to the emergency department for worsened pain, redness, fever, drainage, bleeding, or any other concerns. YOANDY VASQUEZ Feb 09, 2018 14:19
[2018-02-09 14:56] VITALS: BP 138/68
== END 2018-02-09 14:55 | disposition home or self-care (01) ==
LOC: EDUNIT# 13:47 → ER 13:49
DX: S61.012A Laceration without foreign body of left thumb without damage to nail, initial encounter (principal); I48.91 Unspecified atrial fibrillation; I25.10 Atherosclerotic heart disease of native coronary artery without angina pectoris; Z80.0 Family history of malignant neoplasm of digestive organs; Z82.49 Family history of ischemic heart disease and other diseases of the circulatory system; Z80.6 Family history of leukemia; Z23 Encounter for immunization; Z87.440 Personal history of urinary (tract) infections; Z79.01 Long term (current) use of anticoagulants; Z90.11 Acquired absence of right breast and nipple; Z90.710 Acquired absence of both cervix and uterus; Z95.0 Presence of cardiac pacemaker; Z90.49 Acquired absence of other specified parts of digestive tract; W26.9XXA Contact with unspecified sharp object(s), initial encounter
CPT/HCPCS: 90471; 90715; 99284

== ENCOUNTER → 2018-05-22 | Outpatient (CLI) | payer MEDICARE ==
[~2018-05-22] VITALS: Ht 152.4 cm; Wt 62.1 kg
[~2018-05-22] MED LIST changes: -AMIO200T2 PO; +AMIO200T4 PO; +REGADENOSON 0.4 MG/5 ML SYR (LEXISCAN) IV ONE
[2018-05-22] MEDS: CATHETER FLUSH 10 ML SYR IV PRN ×2 (07:54→09:33)
[2018-05-22 09:32] VITALS: BP 174/86
[2018-05-22 15:10] VITALS: BP 175/101
--- NOTE | 2018-05-22 15:10 | Cardiology Stress Test Report ---
Stress Test Report Type of NM Stress Test: Test Type: LEXISCAN 0.4MG/5ML Date of Procedure/Referring: Date of Procedure: May 22, 2018 PCP Jacob Leigh MD Admitting Physician Anders Michelle MD Indications: Chest pain, history of CAD, preop cardiovascular risk assessment. Baseline Heart Rate: 82 Baseline Blood Pressure: Blood Pressure Systolic: 175 Blood Pressure Diastolic: 101 Baseline EKG: Baseline EKG: sinus rhythm Summary: The patient was brought to the stress lab after informed consent was taken. Lexiscan stress test was performed according to the protocol. 0.4 mg of IV Lexiscan was given. Low-grade exercise was performed. Baseline EKG showed sinus rhythm at 82 bpm. Blood pressure was 175/101 mmHg. Maximum heart rate of 84 bpm and blood pressure 174/86 mmHg. Patient did not have any chest pain, arrhythmias or ST-T wave abnormalities. 10.15 mCi of Myoview given for rest imaging and 28.7 mCi of Myoview were given for stress imaging. Transient ischemic dilatation score of 1.07. Ejection fraction of 59 percent with no wall motion abnormalities. Normal perfusion during stress and rest. Conclusion: Pharmacological stress test is negative for ischemia. Normal LV function with no wall motion abnormalities. Normal myocardial perfusion imaging during rest and stress. Jacob LEIGH MD May 22, 2018 3:10 pm
== END ==
LOC: CARD 07:35
PROVIDERS: ATTEND Internal Medicine Interventional Cardiology
DX: Z01.810 Encounter for preprocedural cardiovascular examination (principal); I48.91 Unspecified atrial fibrillation; I49.1 Atrial premature depolarization; I25.10 Atherosclerotic heart disease of native coronary artery without angina pectoris; R07.89 Other chest pain; R06.00 Dyspnea, unspecified; I08.1 Rheumatic disorders of both mitral and tricuspid valves
CPT/HCPCS: 78452; 93017; 93306

== ENCOUNTER → 2018-09-09 | Outpatient (CLI) | payer MEDICARE ==
[~2018-09-09] MED LIST changes: -REGADENOSON 0.4 MG/5 ML SYR (LEXISCAN) IV ONE
[2018-09-09 08:55] LABS: ALBUMIN 4.1 GM/DL (3.2-4.5); BILIRUBIN,DIRECT 0.2 MG/DL (0.0-0.3); BILIRUBIN,INDIRECT 0.4 MG/DL; BILIRUBIN,TOTAL 0.6 MG/DL (0.1-1.0); TOTAL PROTEIN 6.8 GM/DL (6.4-8.2)
== END ==
LOC: RAD 08:23
PROVIDERS: ATTEND Internal Medicine Cardiovascular Disease
DX: I25.10 Atherosclerotic heart disease of native coronary artery without angina pectoris (principal); I48.0 Paroxysmal atrial fibrillation; R06.09 Other forms of dyspnea; I50.22 Chronic systolic (congestive) heart failure
CPT/HCPCS: 36415; 80061; 80076

== ENCOUNTER → 2020-05-20 | Outpatient (CLI) | payer MEDICARE ==
[~2020-05-20] MED LIST changes: -DIGO125T PO; +DIGO125T3 PO; -RIVA20TA PO; +RIVA20TA2 PO
--- NOTE | 2020-05-20 12:09 | Diagnostic Imaging Report ---
INDICATION: Cough and dyspnea. TIME OF EXAM: 11:33 AM Correlation is made with prior chest from 01/23/2018. Cardiac pacemaker remains in place. Heart size is normal and lungs are clear. No infiltrates are seen. There is no effusion or pneumothorax. Surgical clips overlie the right chest and right axilla. IMPRESSION: Stable chest. No acute cardiopulmonary process is detected. Dictated by: Dictated on workstation # [id number]
== END ==
LOC: RAD 11:14
DX: R05 Cough (principal); R06.00 Dyspnea, unspecified; Z95.0 Presence of cardiac pacemaker; Z98.890 Other specified postprocedural states
CPT/HCPCS: 71046

== ENCOUNTER → 2020-11-09 | Outpatient (CLI) | payer MEDICARE ==
[~2020-11-09] MED LIST changes: -AMIO200T4 PO; +AMIO200T6 PO; +GADOBUTROL 7.5 MMOL/7.5 ML (GADAVIST) VIAL IV ONE
--- NOTE | 2020-11-09 13:23 | Diagnostic Imaging Report ---
INDICATION: Pre-MRI screening. TIME OF EXAM: 1:12 PM FINDINGS: Dual-lead left subclavian cardiac pacemaker is in place. No definite abandoned leads are identified. Lungs are clear. There is no effusion or pneumothorax. There are surgical clips overlying the right chest. IMPRESSION: No evidence of abandoned pacemaker leads to preclude MRI. Dictated by: Dictated on workstation # [id number]
--- NOTE | 2020-11-09 14:47 | Diagnostic Imaging Report ---
PROCEDURE: MR imaging of the brain with and without contrast. TECHNIQUE: Multiplanar, multisequence MR imaging of the brain was performed with and without contrast. INDICATION: Dementia. COMPARISON: No prior studies are available for comparison. FINDINGS: Diffusion-weighted images are without evidence of diffusion restriction to suggest acute ischemia. The normal expected flow-voids within the carotid siphons are seen. Ventricular size and sulcal pattern appear to be appropriate for the patient's age. Periventricular and subcortical white matter signal abnormalities are noted, likely owing to chronic microvascular ischemia. No acute intra-axial or extra-axial hemorrhage is detected. No abnormal enhancement following contrast administration is seen. Corpus callosum is unremarkable. Sella and parasellar structures are unremarkable. IMPRESSION: Chronic and senescent changes. No acute intracranial process is detected. Dictated by: Dictated on workstation # [id number]
== END ==
LOC: RAD 12:33
PROVIDERS: ATTEND Family Medicine
DX: F03.90 Unspecified dementia, unspecified severity, without behavioral disturbance, psychotic disturbance, mood disturbance, and anxiety (principal); G31.9 Degenerative disease of nervous system, unspecified
CPT/HCPCS: 70553; 71045

== ENCOUNTER → 2021-02-14 | Outpatient (CLI) | payer MEDICARE ==
[~2021-02-14] MED LIST changes: -GADOBUTROL 7.5 MMOL/7.5 ML (GADAVIST) VIAL IV ONE
== END ==
LOC: CARD 11:15
PROVIDERS: ATTEND Physician Assistant
DX: I10 Essential (primary) hypertension (principal); I08.1 Rheumatic disorders of both mitral and tricuspid valves
CPT/HCPCS: 93306

== ENCOUNTER 2021-05-07 16:23 | Emergency (ER) | payer MEDICARE ==
[~2021-05-07] VITALS: Ht 152.4 cm; Wt 59.0 kg
--- NOTE | 2021-05-07 16:56 | ED General ---
General Chief Complaint: Abdominal/GI Problems Stated Complaint: FEVER/BODY ACHES/NAUSEA/HEADACHE Nursing Triage Note: c/o nausea, generalized aches and headache starting last evening Nursing Sepsis Screen: No Definite Risk Source of Information: Patient Exam Limitations: No Limitations (SHERMAN LYNCH MD) History of Present Illness Date Seen by Provider: May 07, 2021 Time Seen by Provider: 16:51 Initial Comments Patient is an 85-year-old female who presents to the emergency department today with a chief complaint of right lower quadrant abdominal pain, nausea, generalized body aches, low back pain and headache onset last evening. Patient is not Covid vaccinated. She does not recall if she has had any contact with people who have had Covid. Patient states that she has felt febrile. She has had chills. She denies any earache, runny nose, sore throat. She does have a mild generalized headache. She feels a little short of breath but denies cough. No chest pain. As stated she has some right lower quadrant abdominal pain with mild nausea. She has had previous appendectomy. Patient denies any diarrhea or constipation, she denies dysuria, urgency or frequency. She denies any swelling or pain in her legs. No rashes. She does live alone. She cannot recall her past medical history currently. She does not recall if she is taken any Tylenol or ibuprofen today and states "if I did it would have been early this morning". When asked what the final straw was that brought the patient to the emergency department this afternoon she states "because I felt like crap". All other review of systems reviewed and negative except as stated. Timing/Duration: 24 Hours Severity: Severe Associated Systoms: Fever/Chills, Headaches, Malaise, Nausea/Vomiting, Shortness of Air, Weakness (SHERMAN LYNCH MD) Initial Comments Mild nonobstructive coronary disease on cardiac catheterization 2014. EF of 40 to 50%. Paroxysmal atrial fibrillation and sick sinus syndrome with a dual- chamber pacemaker implanted. On Xarelto, metoprolol and amiodarone. Appendectomy, hysterectomy, mastectomy secondary to breast cancer. (MARIAM WILSON) Allergies and Home Medications Allergies Coded Allergies: No Known Drug Allergies (Unverified , 12/12/14) Home Medications Levothyroxine Sodium 25 Mcg Tablet, 25 MCG PO DAILY Prescribed by: BRANDIE HAMMER on 12/05/16 1711 Metoprolol Tartrate 50 Mg Tablet, 50 MG PO BID, (Reported) Rivaroxaban 20 Mg Tablet, 20 MG PO DAILY, (Reported) Timolol 5 Ml Drops, 1 DROP OU BID, (Reported) 0.5% Patient Home Medication List Home Medication List Reviewed: Yes (SHERMAN LYNCH MD) Home Medication List Reviewed: Yes (MARIAM WILSON) Review of Systems Review of Systems Constitutional: see HPI EENTM: no symptoms reported Respiratory: short of breath Cardiovascular: no symptoms reported Gastrointestinal: abdominal pain (RLQ), nausea Genitourinary: no symptoms reported : No Musculoskeletal: back pain Skin: no symptoms reported (SHERMAN LYNCH MD) All Other Systems Reviewed Negative Unless Noted: Yes (SHERMAN LYNCH MD) Negative Unless Noted: Yes (MARIAM WILSON) Past Nxcmxlp-Jnmsam-Gvejht Hx Patient Social History Alcohol Use: Denies Use Smoking Status: Never a Smoker Recent Infectious Disease Expo: No Recent Hopitalizations: Yes (SHERMAN LYNCH MD) Immunizations Up To Date Tetanus Booster (TDap): Unknown Date of Pneumonia Vaccine: Aug 05, 2016 (SHERMAN LYNCH MD) Seasonal Allergies Seasonal Allergies: No (SHERMAN LYNCH MD) Past Medical History Surgeries: Yes (RT MASTECTOMY,CATARACTS SX) Appendectomy, Breast, Gallbladder, Hysterectomy, Oophorectomy, Pacemaker Respiratory: No Currently Using CPAP: No Cardiac: Yes (PACEMAKER, HEART FAILURE) Atrial Fibrillation, Coronary Artery Disease, Heart Murmur Neurological: No Reproductive Disorders: No QC LAB TECHNICIAN History: Hysterectomy UTI-Chronic Gastrointestinal: Yes (bowel impaction in december) Musculoskeletal: Yes (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) Arthritis Endocrine: No Glaucoma Hearing Impairment: Denies Cancer: Yes (R MASTECTOMY) Breast Psychosocial: No Integumentary: No Blood Disorders: No Adverse Reaction/Blood Tranf: No (SHERMAN LYNCH MD) Family Medical History Colon cancer G8 BROTHER Completed stroke 19 MOTHER ("Mother had several strokes") FH: leukemia 19 FATHER FHx: heart disease 19 FATHER 19 MOTHER G8 BROTHER Heart Disease, Cancer (SHERMAN LYNCH MD) Physical Exam Vital Signs Vital Signs - First Documented 05/07/21 16:46 Temp 37.4 Pulse 97 Resp 18 B/P (MAP) 175/95 (121) Pulse Ox 95 O2 Delivery Room Air (MARIAM WILSON) Vital Signs Capillary Refill : Less Than 3 Seconds (SHERMAN LYNCH MD) Height, Weight, BMI Height: 5'0.00" Weight: 137lbs. 0.0oz. 62.839903cu; 25.00 BMI Method:Stated General Appearance: No Apparent Distress, WD/WN Eyes: Bilateral Eye Normal Inspection, Bilateral Eye PERRL, Bilateral Eye EOMI HEENT: Pharynx Normal Neck: Normal Inspection Respiratory: Lungs Clear, Normal Breath Sounds, No Accessory Muscle Use, No Respiratory Distress Cardiovascular: Regular Rate, Rhythm, Normal Peripheral Pulses Gastrointestinal: Soft, Tenderness Back: Normal Inspection, No Vertebral Tenderness Extremity: Normal Capillary Refill, Normal Inspection, Normal Range of Motion, No Calf Tenderness Neurologic/Psychiatric: Alert, Oriented x3, No Motor/Sensory Deficits Skin: Normal Color, Warm/Dry (SHERMAN LYNCH MD) Focused Exam Lactate Level 05/07/21 17:44: Lactic Acid Level 1.11 (MARIAM WILSON) Lactic Acid Level Laboratory Tests Test 05/07/21 17:44 Lactic Acid Level 1.11 MMOL/L (0.50-2.00) (MARIAM WILSON) Progress/Results/Core Measures Suspected Sepsis Recent Fever Within 48 Hours: No Infection Criteria Present: None New/Unexplained Altered Menta: No Sepsis Screen: No Definite Risk SIRS Temperature: Pulse: 97 Respiratory Rate: 18 Blood Pressure 175 /95 Mean: 121 (SHERMAN LYNCH MD) Results/Orders Lab Results Laboratory Tests Test 05/07/21 16:50 05/07/21 17:44 05/07/21 18:04 Range/Units White Blood Count 11.1 H 4.3-11.0 10^3/uL Red Blood Count 4.56 3.80-5.11 10^6/uL Hemoglobin 12.8 11.5-16.0 g/dL Hematocrit 39 35-52 % Mean Corpuscular Volume 86 80-99 fL Mean Corpuscular Hemoglobin 28 25-34 pg Mean Corpuscular Hemoglobin Concent 33 32-36 g/dL Red Cell Distribution Width 13.8 10.0-14.5 % Platelet Count 228 130-400 10^3/uL Mean Platelet Volume 12.1 9.0-12.2 fL Immature Granulocyte % (Auto) 1 % Neutrophils (%) (Auto) 82 H 42-75 % Lymphocytes (%) (Auto) 9 L 12-44 % Monocytes (%) (Auto) 7 0-12 % Eosinophils (%) (Auto) 1 0-10 % Basophils (%) (Auto) 1 0-10 % Neutrophils # (Auto) 9.0 H 1.8-7.8 10^3/uL Lymphocytes # (Auto) 1.0 1.0-4.0 10^3/uL Monocytes # (Auto) 0.8 0.0-1.0 10^3/uL Eosinophils # (Auto) 0.1 0.0-0.3 10^3/uL Basophils # (Auto) 0.1 0.0-0.1 10^3/uL Immature Granulocyte # (Auto) 0.1 0.0-0.1 10^3/uL Influenza Type A (RT-PCR) Not Detected Not Detecte Influenza Type B (RT-PCR) Not Detected Not Detecte SARS-CoV-2 RNA (RT-PCR) Not Detected Not Detecte Sodium Level 136 135-145 MMOL/L Potassium Level 3.7 3.6-5.0 MMOL/L Chloride Level 99 98-107 MMOL/L Carbon Dioxide Level 21 21-32 MMOL/L Anion Gap 16 H 5-14 MMOL/L Blood Urea Nitrogen 9 7-18 MG/DL Creatinine 0.82 0.60-1.30 MG/DL Estimat Glomerular Filtration Rate > 60 BUN/Creatinine Ratio 11 Glucose Level 120 H 70-105 MG/DL Lactic Acid Level 1.11 0.50-2.00 MMOL/L Calcium Level 9.1 8.5-10.1 MG/DL Corrected Calcium 9.1 8.5-10.1 MG/DL Total Bilirubin 1.0 0.1-1.0 MG/DL Aspartate Amino Transf (AST/SGOT) 24 5-34 U/L Alanine Aminotransferase (ALT/SGPT) 14 0-55 U/L Alkaline Phosphatase 65 40-136 U/L Total Protein 7.0 6.4-8.2 GM/DL Albumin 4.0 3.2-4.5 GM/DL Urine Color YELLOW Urine Clarity SL CLOUDY Urine pH 6.5 5-9 Urine Specific [place]ove 1.015 L 1.016-1.022 Urine Protein NEGATIVE NEGATIVE Urine Glucose (UA) NEGATIVE NEGATIVE Urine Ketones 1+ H NEGATIVE Urine Nitrite POSITIVE H NEGATIVE Urine Bilirubin NEGATIVE NEGATIVE Urine Urobilinogen 0.2 < = 1.0 MG/DL Urine Leukocyte Esterase TRACE H NEGATIVE Urine RBC (Auto) 1+ H NEGATIVE Urine RBC 0-2 /HPF Urine WBC 5-10 H /HPF Urine Squamous Epithelial Cells 0-2 /HPF Urine Crystals NONE /LPF Urine Bacteria LARGE H /HPF Urine Casts NONE /LPF Urine Mucus NEGATIVE /LPF Urine Culture Indicated NO (MARIAM WILSON) Medications Given in ED Current Medications Medications Dose Ordered Sig/[place]beka Route Start Time Stop Time Status Last Admin Dose Admin Ondansetron HCl 4 mg ONCE ONCE IVP 05/07/21 17:00 05/07/21 17:01 DC 05/07/21 17:08 4 MG (MARIAM WILSON) Vital Signs/I&O 05/07/21 05/07/21 05/07/21 05/07/21 16:46 17:00 17:30 18:00 Temp 37.4 37.0 Pulse 97 94 77 98 Resp 18 18 18 16 B/P (MAP) 175/95 (121) 168/95 (119) 166/82 (110) 147/83 (104) Pulse Ox 95 94 94 96 O2 Delivery Room Air Room Air Room Air Room Air 05/07/21 18:30 Pulse 84 Resp 20 B/P (MAP) 156/74 (101) Pulse Ox 97 (AMRIAM WILSON) Vital Signs/I&O Capillary Refill : Less Than 3 Seconds (SHERMAN LYNCH MD) Blood Pressure Mean: 121 Progress Note : Time: 18:05 Progress Note Assumed care of the patient at shift change. I agree with above documented history physical exam. Because of some hemolyzed lab draws we had to redraw her chemistry panel and lactate. These as well as a chest x-ray are still pending. She is getting up to go to the bathroom and will hopefully produce a urinalysis. (MARIAM WILSON) Diagnostic Imaging Diagonstic Imaging: Xray Plain Films/CT/US/NM/MRI: chest Comments [facility], [place] NAME: CARLY JEFFREY [facility] REC#: [id number] PT STATUS: REG ER : 1935 PHYSICIAN: SHERMAN LYNCH MD ADMIT DATE: 05/07/21/ER Draft Date of Exam:05/07/21 CHEST 1 VIEW, AP/PA ONLY INDICATION: Generalized headache and aches and pains. EXAMINATION: Chest, 05/07/2021. COMPARISON: 03/10/2020. FINDINGS: There is a left-sided pacemaker stable from previous imaging with clips in the right lower chest. Heart is stable. Pulmonary vasculature is unremarkable. Lungs and pleural spaces clear. IMPRESSION: Chronic findings with no acute cardiopulmonary process. Dictated on workstation # [id number] Dict: 05/07/21 1800 Trans: 05/07/[address] [facility] [id number] Interpreted by: CHRIS AMBROSIO MD Electronically signed by: Reviewed: Reviewed by Me (MARIAM WILSON) Departure Impression Primary Impression: UTI (urinary tract infection) Qualified Codes: N30.00 - Acute cystitis without hematuria Disposition: HOME, SELF-CARE Condition: Stable Departure-Patient Inst. Decision time for Depature: 18:45 (MARIAM WILSON) Referrals: CHASIDY DE LA ROSA MD (PCP/Family) Primary Care Physician Patient Instructions: Urinary Tract Infection, Adult (DC) Add. Discharge Instructions: Drink lots of fluids. Tylenol 1000 mg every 8 hours as necessary for discomfort. Cephalexin 1 capsule twice a day for the next week. Expect results in about 3 to 4 days. Follow-up with your primary care doctor if you are not seeing good improvement over the next week. Return to the ER promptly for severe fever, intractable pain or other worrisome symptoms. All discharge instructions reviewed with patient and/or family. Voiced understanding. Scripts Cephalexin (Cephalexin) 500 Mg Tablet 500 MG PO BID for 7 Days, #14 TAB 0 Refills Prov: MARIAM WILSON 05/07/21 SHERMAN LYNCH MD May 07, 2021 16:56 MARIAM WILSON May 07, 2021 18:05
[2021-05-07] MEDS ORDERED: NS IV 1000 ML 1,000 ML IV SCH (17:00)
[2021-05-07] MEDS ORDERED: ONDANSETRON 4 MG/2 ML (SDV) Z0FRAN IVP ONE (17:00)
[2021-05-07 17:11] LABS: BASOPHILS # (AUTO) 0.1 10^3/uL (0.0-0.1); BASOPHILS % (AUTO) 1 % (0-10); EOSINOPHILS # (AUTO) 0.1 10^3/uL (0.0-0.3); EOSINOPHILS % (AUTO) 1 % (0-10); HEMATOCRIT 39 % (35-52); HEMOGLOBIN 12.8 g/dL (11.5-16.0); LYMPHOCYTES % (AUTO) 9 % (12-44); MEAN CORPUSCULAR HEMOGLOBIN 28 pg (25-34); MEAN CORPUSCULAR HGB CONC 33 g/dL (32-36); MEAN CORPUSCULAR VOLUME 86 fL (80-99); MEAN PLATELET VOLUME 12.1 fL (9.0-12.2); MONOCYTES # (AUTO) 0.8 10^3/uL (0.0-1.0); MONOCYTES % (AUTO) 7 % (0-12); NEUTROPHILS % (AUTO) 82 % (42-75); PLATELET COUNT 228 10^3/uL (130-400); WHITE BLOOD COUNT 11.1 10^3/uL (4.3-11.0)
[2021-05-07 18:07] LABS: CHLORIDE 99 MMOL/L (98-107); POTASSIUM 3.7 MMOL/L (3.6-5.0); SODIUM 136 MMOL/L (135-145)
[2021-05-07 18:08] LABS: CALCIUM 9.1 MG/DL (8.5-10.1)
[2021-05-07 18:09] LABS: GLUCOSE 120 MG/DL (70-105)
[2021-05-07 18:10] LABS: CARBON DIOXIDE 21 MMOL/L (21-32)
[2021-05-07 18:12] LABS: ALKALINE PHOSPHATASE 65 U/L (40-136)
[2021-05-07 18:13] LABS: CREATININE SERUM 0.82 MG/DL (0.60-1.30); GFR ESTIMATED > 60
[2021-05-07 18:13] LABS: BILIRUBIN,URINE NEGATIVE (NEGATIVE); CLARITY,URINE SL CLOUDY; COLOR,URINE YELLOW; GLUCOSE, URINE (UA) NEGATIVE (NEGATIVE); KETONES,URINE 1+ (NEGATIVE); LEUKOCYTE ESTERASE ,URINE TRACE (NEGATIVE); NITRITE,URINE POSITIVE (NEGATIVE); PH,URINE 6.5 (5-9); PROTEIN,URINE NEGATIVE (NEGATIVE)
[2021-05-07 18:14] LABS: BUN/CREATININE RATIO 11
[2021-05-07 18:15] LABS: ALANINE AMINOTRANSFERASE 14 U/L (0-55)
[2021-05-07 18:20] LABS: BACTERIA,URINE LARGE /HPF; RBC,URINE 0-2 /HPF; SQUAMOUS EPITHELIAL CELL,UR 0-2 /HPF
--- NOTE | 2021-05-07 18:23 | Diagnostic Imaging Report ---
INDICATION: Generalized headache and aches and pains. EXAMINATION: Chest, 05/07/2021. COMPARISON: 03/10/2020. FINDINGS: There is a left-sided pacemaker stable from previous imaging with clips in the right lower chest. Heart is stable. Pulmonary vasculature is unremarkable. Lungs and pleural spaces clear. IMPRESSION: Chronic findings with no acute cardiopulmonary process. Dictated by: Dictated on workstation # [id number]
[2021-05-07] MEDS ORDERED: CEPH500T PO (18:46)
[2021-05-07] MEDS ORDERED: cefTRIAXone 1,000 MG in WATER (STERILE) FOR INJECTION 10 ML IV ONE (19:00)
[2021-05-07 19:10] VITALS: BP 174/94
== END 2021-05-07 19:16 | disposition home or self-care (01) ==
LOC: EDUNIT# 16:23 → ER 16:25
DX: N39.0 Urinary tract infection, site not specified (principal); I48.91 Unspecified atrial fibrillation; Z20.822 Contact with and (suspected) exposure to COVID-19; Z79.01 Long term (current) use of anticoagulants
CPT/HCPCS: 36415; 71045; 80053; 81000; 83605; 85025; 87040; 87077; 87088; 87186; 87636; 96374; 96375

== ENCOUNTER → 2021-05-23 | Outpatient (CLI) | payer MEDICARE ==
[~2021-05-23] MED LIST changes: +CEPH500T PO
--- NOTE | 2021-05-23 13:44 | Diagnostic Imaging Report ---
INDICATION: Pain in the right wrist. TIME OF EXAM: 11:50 a.m. Three views of the right wrist demonstrate distal radius and ulna to be intact. Carpus is unremarkable apart from degenerative changes at the triscaphe and first CMC joints. Metacarpals are intact and no fractures are seen. IMPRESSION: Degenerative changes. No acute bony abnormality is detected. Dictated by: Dictated on workstation # [id number]
== END ==
LOC: RAD 11:35
PROVIDERS: ATTEND Family Medicine
DX: M19.031 Primary osteoarthritis, right wrist (principal)
CPT/HCPCS: 73110

== ENCOUNTER → 2022-02-19 | Outpatient (CLI) | payer MEDICARE ==
[~2022-02-19] MED LIST changes: -AMIO200T6 PO; +AMIO200T65 PO
[2022-02-19 09:52] LABS: ALBUMIN 4.1 GM/DL (3.2-4.5); BILIRUBIN,TOTAL 0.9 MG/DL (0.1-1.0); CALCIUM 9.1 MG/DL (8.5-10.1); CREATININE SERUM 1.13 MG/DL (0.60-1.30); TOTAL PROTEIN 6.7 GM/DL (6.4-8.2)
== END ==
LOC: LAB 09:01
PROVIDERS: ATTEND Physician Assistant
DX: I11.0 Hypertensive heart disease with heart failure (principal); I50.22 Chronic systolic (congestive) heart failure; I25.10 Atherosclerotic heart disease of native coronary artery without angina pectoris; R06.09 Other forms of dyspnea; I48.0 Paroxysmal atrial fibrillation; E78.2 Mixed hyperlipidemia; I65.23 Occlusion and stenosis of bilateral carotid arteries
CPT/HCPCS: 36415; 80053; 80061

== ENCOUNTER → 2022-10-22 | Outpatient (CLI) | payer MEDICARE | LOC: CARD 08:30 | PROVIDERS: ATTEND Physician Assistant | DX: I11.9 Hypertensive heart disease without heart failure (principal); I08.3 Combined rheumatic disorders of mitral, aortic and tricuspid valves | CPT/HCPCS: 93306 ==

== ENCOUNTER → 2023-01-08 | Outpatient (RCR) | payer MEDICARE | END | disposition home or self-care (01) | LOC: ONC 01-07 08:52 | PROVIDERS: ATTEND Radiology Radiation Oncology | DX: I11.0 Hypertensive heart disease with heart failure (principal); I25.10 Atherosclerotic heart disease of native coronary artery without angina pectoris; I48.0 Paroxysmal atrial fibrillation; E78.2 Mixed hyperlipidemia; I65.29 Occlusion and stenosis of unspecified carotid artery; E03.9 Hypothyroidism, unspecified; R06.09 Other forms of dyspnea | CPT/HCPCS: 77290; 77334; 77470; 99205 ==

== ENCOUNTER → 2023-02-08 | Outpatient (RCR) | payer MEDICARE | END | disposition home or self-care (01) | LOC: ONC 01-10 09:22 | PROVIDERS: ATTEND Radiology Radiation Oncology | DX: I11.0 Hypertensive heart disease with heart failure (principal); I25.10 Atherosclerotic heart disease of native coronary artery without angina pectoris; I48.0 Paroxysmal atrial fibrillation; E78.2 Mixed hyperlipidemia; I65.29 Occlusion and stenosis of unspecified carotid artery; E03.9 Hypothyroidism, unspecified; R06.09 Other forms of dyspnea; I50.9 Heart failure, unspecified | CPT/HCPCS: 77280; 77295; 77300; 77332; 77334; 77336; 77417 ==

== ENCOUNTER 2023-03-05 08:44 | Outpatient (RCR) | payer MEDICARE, OTHER ==
[~2023-03-05 08:44] MED LIST changes: -TIMO5DRO28 OU; +TIMO5DRO40 OU
== END 2023-03-10 | disposition home or self-care (01) ==
LOC: ONC 08:44
PROVIDERS: ATTEND Radiology Radiation Oncology
DX: I11.0 Hypertensive heart disease with heart failure (principal); I25.10 Atherosclerotic heart disease of native coronary artery without angina pectoris; I48.0 Paroxysmal atrial fibrillation; E78.2 Mixed hyperlipidemia; I65.29 Occlusion and stenosis of unspecified carotid artery; E03.9 Hypothyroidism, unspecified; R06.09 Other forms of dyspnea
CPT/HCPCS: 77280; 77307; 77334; 77336

== ENCOUNTER 2023-04-11 10:49 | Outpatient (RCR) | payer MEDICARE, OTHER | END 2023-05-10 | disposition home or self-care (01) | LOC: ONC 10:49 | PROVIDERS: ATTEND Radiology Radiation Oncology | DX: C79.2 Secondary malignant neoplasm of skin (principal); I11.0 Hypertensive heart disease with heart failure; I50.22 Chronic systolic (congestive) heart failure; I25.10 Atherosclerotic heart disease of native coronary artery without angina pectoris; I48.0 Paroxysmal atrial fibrillation; E78.2 Mixed hyperlipidemia; I65.29 Occlusion and stenosis of unspecified carotid artery; E03.9 Hypothyroidism, unspecified; R06.09 Other forms of dyspnea; Z85.3 Personal history of malignant neoplasm of breast | CPT/HCPCS: 99213 ==